=== PATIENT | female | born 1975 | race Caucasian/White ===

== ENCOUNTER → 2016-09-27 | Outpatient (CLI) | payer BC ==
--- NOTE | 2016-09-28 05:45 | PN ---
A 41-year-old female patient coming to see me in followup regarding her obstructive sleep apnea in sleep center. I saw this patient in consultation back in 2016 and I had a very high suspicion that the patient has obstructive sleep apnea based on her loud snoring, witness apneas, poor sleep quality and chronic hypersomnia and sleepiness. Her Mohall score was at 17. Her symptoms were very suggestive and my suspicion was high. I set up this patient to have sleep study, however, she failed to show up. Her condition has gotten worse. She has gained around 11 pounds. She is falling asleep at work and she has not been able to function and she is about to get fired as the patient works everyday and yet she has not been able to function. For that reason, she came back to the office for re-evaluation. Her current pulse ox on room air is 92% and she with activity she would desaturate below 90%. She has the same symptoms which is very suggestive of obstructive sleep apnea. She also psoriasis with psoriatic arthritis and history of depression. BP is 144/110, pulse 83, respirations 22, temperature 98.7. Saturation 92% on room air. Weight is 303. Height 5 feet 0 inch. BMI is 59.1. Mohall score is 19. GENERAL APPEARANCE: Appears obese, calm, comfortable. HEENT: Short neck, crowding posterior pharynx. There is no goiter or neck mass. Micrognathia along with an overbite. LUNGS: Clear to auscultation. HEART: Sounds regular rate and rhythm. Normal S1, S2. ABDOMEN: Soft, nontender. No organomegaly. EXTREMITIES: No edema, cyanosis or clubbing. SKIN: Extensive plaque psoriasis. IMPRESSION: 1. Obstructive sleep apnea suspected. Clinical suspicion is extremely high. The patient will need to be further investigated. 2. Hypersomnia. Mohall score of 19. 3. Morbid obesity. Body mass index of 59. 4. Psoriasis. 5. Depression. PLAN: 1. Immediate screening polysomnogram. 2. Avoid driving for now until the patient's obstructive sleep apnea is well treated. 3. Encourage weight loss. 4. Implement good sleep hygiene measures. 5. Will follow. [facility]
== END | disposition home or self-care (01) ==
LOC: SLEEP 15:59
PROVIDERS: ATTEND Internal Medicine Critical Care Medicine
DX: G47.10 Hypersomnia, unspecified (principal); F32.9 Major depressive disorder, single episode, unspecified; E66.01 Morbid (severe) obesity due to excess calories; L40.9 Psoriasis, unspecified

== ENCOUNTER 2016-10-08 17:08 | Inpatient (IN) | payer BC ==
[2016-10-08] MEDS ORDERED: ONDANSETRON 4 MG/2 ML VIAL IVP STA (17:24)
[2016-10-08] MEDS ORDERED: ACETAMINOPHEN TAB 500 MG TAB PO STA (17:24)
[2016-10-08] MEDS ORDERED: SODIUM CHLORIDE 0.9% 500 ML IV STA (17:24)
--- NOTE | 2016-10-08 17:48 | ED ---
General Adult HPI - General Chief complaint: Extremity Problem,Nontraumatic Stated complaint: left leg pain Time Seen by Provider: 10/08/16 17:16 Source: patient Mode of arrival: wheelchair Limitations: no limitations - History of Present Illness Initial comments: 41-year-old female patient with past medical history significant for psoriasis and bilateral lower extremity lymphedema, presents to emergency department today for complaints of left leg pain, and lower extremity erythema. Patient states that she woke this morning and had pain from her groin radiating down her leg. She describes the pain as aching and throbbing. She is having difficulty ambulating due to the pain. She states upon examination of her leg she did see some lower leg, circumferential erythema. Patient states that she has had chills, nausea, and vomiting as well today. Patient has not checked her temperature. She denies any chest pain, shortness of breath, dizziness, or weakness. She denies any hematemesis, abdominal pain, constipation, diarrhea, dysuria, urinary urgency, or urinary frequency. - Related Data Home Medications Medication Instructions Recorded Confirmed Citalopram Hydrobromide [CeleXA] 40 mg PO DAILY 09/14/14 10/08/16 Furosemide [Lasix] 20 mg PO DAILY 09/14/14 10/08/16 Levothyroxine Sodium [Synthroid] 150 mcg PO DAILY 09/14/14 10/08/16 Losartan Potassium [Cozaar] 50 mg PO DAILY 09/14/14 10/08/16 Vitamin D 5,000 Units 20,000 units PO DAILY 10/08/16 10/08/16 Allergies Allergy/AdvReac Type Severity Reaction Status Date / Time Latex, Natural Rubber Allergy Itching Verified 10/08/16 17:43 vancomycin Allergy Itching Verified 10/08/16 17:43 Review of Systems ROS Statement: Those systems with pertinent positive or pertinent negative responses have been documented in the HPI. ROS Other: All systems not noted in ROS Statement are negative. Past Medical History Past Medical History: Thyroid Disorder Additional Past Medical History / Comment(s): lymphedema History of Any Multi-Drug Resistant Organisms: None Reported Past Surgical History: Ablation, Ear Surgery Past Psychological History: Depression Smoking Status: Never smoker Past Alcohol Use History: None Reported Past Drug Use History: None Reported General Exam Limitations: no limitations General appearance: alert, in no apparent distress Eye exam: Present: normal appearance, PERRL, EOMI. Absent: scleral icterus, conjunctival injection, periorbital swelling ENT exam: Present: normal exam, mucous membranes moist Neck exam: Present: normal inspection. Absent: tenderness, meningismus, lymphadenopathy Respiratory exam: Present: normal lung sounds bilaterally. Absent: respiratory distress, wheezes, rales, rhonchi, stridor Cardiovascular Exam: Present: regular rate, normal rhythm, tachycardia ( ), normal heart sounds. Absent: systolic murmur, diastolic murmur, rubs, gallop, clicks GI/Abdominal exam: Present: soft, normal bowel sounds. Absent: distended, tenderness, guarding, rebound, rigid Extremities exam: Present: full ROM, tenderness (Left lower extremity tenderness ), normal capillary refill, pedal edema (Bilateral, nonpitting), other ( Circumferential erythema noted from mid calf down to the ankle, bilateral lower extremities exhibit swelling, nonpitting). Absent: normal inspection, joint swelling, calf tenderness Back exam: Present: normal inspection Neurological exam: Present: alert, oriented X3, CN II-XII intact Psychiatric exam: Present: normal affect, normal mood Skin exam: Present: warm, dry, intact, other (Patchy areas of psoriasis noted over entire body). Absent: rash Course Vital Signs 10/08/16 10/08/16 10/08/16 17:11 17:46 18:09 Temperature 97.8 F 102.8 F H Pulse Rate 117 H 100 Respiratory 18 24 Rate Blood Pressure 129/56 115/62 O2 Sat by Pulse 93 L 87 L Oximetry Medical Decision Making - Medical Decision Making 41-year-old female patient presents to emergency department today for evaluation of left leg pain and erythema to the left lower extremity. Patient was found to be febrile, white blood cell count of 25.4, and a lactic acid 3.0. Blood cultures were obtained and patient started on Unasyn. Vital signs reviewed patient was not hypotensive during stay in emergency department. She was hypoxic at 87% on room air, oxygen applied, chest x-ray ordered. CXR read revealed possible mild CHF, BNP added. Spoke to Rajesh Galvan NP for hospitalist group, patient will be admitted. - Lab Data Result diagrams: 10/08/16 18:00 10/08/16 18:00 Lab Results 10/08/16 10/08/16 10/08/16 Range/Units 18:00 18:00 18:00 WBC 25.4 H* (3.8-10.6) k/uL RBC 5.40 (3.80-5.40) m/uL Hgb 14.1 (11.4-16.0) gm/dL Hct 43.0 (34.0-46.0) % MCV 79.7 L (80.0-100.0) fL MCH 26.1 (25.0-35.0) pg MCHC 32.8 (31.0-37.0) g/dL RDW 14.6 (11.5-15.5) % Plt Count 286 (150-450) k/uL Neutrophils % 94 % Lymphocytes % 2 % Monocytes % 3 % Eosinophils % 0 % Basophils % 0 % Neutrophils # 24.0 H (1.3-7.7) k/uL Lymphocytes # 0.6 L (1.0-4.8) k/uL Monocytes # 0.7 (0-1.0) k/uL Eosinophils # 0.0 (0-0.7) k/uL Basophils # 0.0 (0-0.2) k/uL Hypochromasia Slight Sodium 134 L (137-145) mmol/L Potassium 3.6 (3.5-5.1) mmol/L Chloride 96 L (98-107) mmol/L Carbon Dioxide 26 (22-30) mmol/L Anion Gap 12 mmol/L BUN 11 (7-17) mg/dL Creatinine 0.60 (0.52-1.04) mg/dL Est GFR (MDRD) Af Amer >60 (>60 ml/min/1.73 sqM) Est GFR (MDRD) Non-Af >60 (>60 ml/min/1.73 sqM) Glucose 118 H (74-99) mg/dL Plasma Lactic Acid Mat 3.0 H* (0.7-2.0) mmol/L Calcium 8.8 (8.4-10.2) mg/dL Total Bilirubin 1.1 (0.2-1.3) mg/dL AST 20 (14-36) U/L ALT 33 (9-52) U/L Alkaline Phosphatase 73 (38-126) U/L Total Protein 5.1 L (6.3-8.2) g/dL Albumin 3.4 L (3.5-5.0) g/dL - Radiology Data Radiology results: report reviewed, image reviewed Left lower extremity venous Doppler revealed no DVT. Two-view x-ray of the chest shows no focal airspace opacity, pleural effusion, or pneumothorax. There is mild cephalization of the coronary vessels which could be due to mild pulmonary edema. The cardiac silhouette is borderline enlarged. The osseous structures are intact. Impression by Dr. Benites reveals mild CHF. Disposition Clinical Impression: Cellulitis of left lower extremity, Sepsis Disposition: ADMITTED IP TO THIS HOSP Condition: Fair Referrals: Diaz Sierra DO [Primary Care Provider] - 1-2 days Decision to Admit Reason: Admit from EC Decision Date: 10/08/16 Decision Time: 19:05
--- NOTE | 2016-10-08 18:07 | US ---
EXAMINATION TYPE: US venous doppler duplex LE LT DATE OF EXAM: 10/08/2016 5:57 PM COMPARISON: NONE CLINICAL HISTORY: Pain. Left leg pain SIDE PERFORMED: Left TECHNIQUE: The lower extremity deep venous system is examined utilizing real time linear array sonog vaibhav with graded compression, doppler sonography and color-flow sonography. VESSELS IMAGED: External Iliac Vein (EIV) Common Femoral Vein Greater Saphenous Vein * Femoral Vein Popliteal Vein Small Saphenous Vein * Proximal Calf Veins (* superficial vessels) *Technical limitations due to patient's body habitus 5'0" and 300+ pounds. Patient extremely uncomfor table during entire exam Left Leg: No evidence of DVT as visualized IMPRESSION: Grayscale, color doppler, spectral doppler imaging performed of the deep veins of the lo wer extremities. There is normal flow, compressibility, vascular waveforms bilaterally.
[2016-10-08 18:31] LABS: ALT 33 U/L (9-52); AST 20 U/L (14-36); Alkaline Phosphatase 73 U/L (38-126); Anion Gap 12 mmol/L; Blood Urea Nitrogen 11 mg/dL (7-17); Calcium 8.8 mg/dL (8.4-10.2); Carbon Dioxide 26 mmol/L (22-30); Chloride 96 mmol/L (98-107); Glucose 118 mg/dL (74-99); Non-African American GFR(MDRD) >60 (>60 ml/min/1.73 sqM); Potassium 3.6 mmol/L (3.5-5.1); Sodium 134 mmol/L (137-145); Total Bilirubin 1.1 mg/dL (0.2-1.3); Total Protein 5.1 g/dL (6.3-8.2)
[2016-10-08 18:46] LABS: Basophils % (A) 0 %; CH 25.2; CHCM 31.7; Eosinophils % (A) 0 %; HDW 2.85; HGB 14.1 gm/dL (11.4-16.0); Hypochromasia Slight; Luc # (Auto) 0.13; Luc % (Auto) 1; Lymphocytes # (A) 0.6 k/uL (1.0-4.8); Lymphocytes % (A) 2 %; MCH 26.1 pg (25.0-35.0); MCHC 32.8 g/dL (31.0-37.0); MCV 79.7 fL (80.0-100.0); Mean Platelet Volume 6.7; Monocytes # (A) 0.7 k/uL (0-1.0); Monocytes % (A) 3 %; Neutrophils % (A) 94 %; RDW 14.6 % (11.5-15.5); WBC (Perox) 24.93
[2016-10-08 18:48] LABS: WBC 25.4 k/uL (3.8-10.6)
[2016-10-08] MEDS ORDERED: IBUPROFEN 800 MG TAB PO STA (19:01)
--- NOTE | 2016-10-08 19:01 | XR ---
EXAMINATION TYPE: XR chest 2V TECHNIQUE: 2 views the chest were obtained. DATE OF EXAM: 10/08/2016 COMPARISON: July 19, 2010 HISTORY: Shortness of breath. Lymphedema. TECHNIQUE: Frontal and lateral views of the chest are obtained. FINDINGS: There is no focal air space opacity, pleural effusion, or pneumothorax seen. There is mild cephalization of the coronary vessels which could be due to mild pulmonary edema. The cardiac silhou ette is borderline enlarged. The osseous structures are intact. IMPRESSION: Mild CHF is noted.
[2016-10-08] MEDS ORDERED: AMPICILLIN-SULBACTAM 3 GM in SODIUM CHLORIDE 0.9% 100 ML IVPB STA (19:03)
[2016-10-08] MEDS: SODIUM CHLORIDE 0.9% 500 ML IV SCH ×3 (19:22→20:11)
[2016-10-09] MEDS: AMPICILLIN-SULBACTAM 3 GM in SODIUM CHLORIDE 0.9% 100 ML IVPB SCH ×5 (00:06→23:58)
[2016-10-09 02:34] LABS: Glucose,Whole Blood 137 mg/dL (75-99)
[2016-10-09] MEDS ORDERED: RX INFO: IV CONTRAST WAS GIVEN 1 EACH MISC MISCELLANE PRN (13:55)
[2016-10-09] MEDS ORDERED: FUROSEMIDE 10 MG/ML 4 ML VIAL IV STA (13:56)
--- NOTE | 2016-10-09 14:12 | P.HPIM ---
History of Present Illness H&P Date: 10/09/16 Chief Complaint: Left lower extremity cellulitis 41-year-old female with history of obstructive sleep apnea, obesity, essential hypertension and psoriasis comes into the hospital with the left lower extremity worsening tenderness over the last few days. Patient states that she has had significant increase in swelling and this is secondary to lymphedema that is chronic in nature Patient was seen in the emergency room was noted to have a swollen left lower extremity ultrasound of the lower extremity did not reveal any deep venous thrombosis Patient was admitted to the hospital was started on IV Unasyn A chest x-ray initially on admission did show mild CHF. Patient was noted to have lactic acidosis and a white count around 25,000 Patient denies having any fevers headaches blurry vision chest pain however does state to have some difficulty breathing Patient is currently on 3 L of supplemental oxygen Patient denies having any abdominal pain urinary urgency or frequency or diarrhea Patient denies having any history of MRSA infections in the past Review of Systems All systems: negative (Noted in HPI) Past Medical History Past Medical History: Thyroid Disorder Additional Past Medical History / Comment(s): lymphedema History of Any Multi-Drug Resistant Organisms: None Reported Past Surgical History: Ablation, Ear Surgery Past Anesthesia/Blood Transfusion Reactions: Postoperative Nausea & Vomiting ( PONV) Past Psychological History: Depression Smoking Status: Never smoker Past Alcohol Use History: None Reported Past Drug Use History: None Reported - Past Family History Mother Family Medical History: Diabetes Mellitus, Sleep Apnea/CPAP/BIPAP, Thyroid Disorder Additional Family Medical History / Comment(s): "heart issues", smoker Medications and Allergies Home Medications Medication Instructions Recorded Confirmed Type Citalopram Hydrobromide [CeleXA] 40 mg PO DAILY 09/14/14 10/08/16 History Furosemide [Lasix] 20 mg PO DAILY 09/14/14 10/08/16 History Levothyroxine Sodium [Synthroid] 150 mcg PO DAILY 09/14/14 10/08/16 History Losartan Potassium [Cozaar] 50 mg PO DAILY 09/14/14 10/08/16 History Vitamin D 5,000 Units 20,000 units PO DAILY 10/08/16 10/08/16 History Allergies Allergy/AdvReac Type Severity Reaction Status Date / Time Latex, Natural Rubber Allergy Itching Verified 10/08/16 17:43 vancomycin Allergy Itching Verified 10/08/16 17:43 Physical Exam Vitals: Vital Signs Temp Pulse Pulse Resp BP BP Pulse Ox 10/09/16 08:00 97.5 F L 85 18 113/67 91 L 10/09/16 04:00 96.6 F L 96 16 95/59 99 10/09/16 00:00 96.8 F L 95 16 92/52 95 10/08/16 22:23 97.9 F 83 16 87/47 91 L 10/08/16 21:01 98.9 F 96 18 106/55 94 L 10/08/16 20:49 97 20 105/57 94 L 10/08/16 20:39 94 16 104/57 10/08/16 20:29 98 16 104/56 96 10/08/16 20:07 90 18 101/58 96 10/08/16 19:52 94 18 98/54 97 10/08/16 19:41 101.1 F H 89 18 87/53 94 L 10/08/16 19:17 94 22 85/42 95 10/08/16 18:09 100 24 115/62 87 L 10/08/16 17:46 102.8 F H 10/08/16 17:11 97.8 F 117 H 18 129/56 93 L Intake and Output 10/08/16 10/09/16 10/09/16 22:59 06:59 14:59 Intake Total 100 Balance 100 Intake: IV 100 Ampicillin-Sulbactam 3 gm 100 In Sodium Chloride 0.9% 100 ml @ 100 mls/hr IVPB ONCE STA Rx#:[id number] Other: Voiding Method Toilet # Voids 1 1 Weight 140.614 kg 137.7 kg Physical exam Gen. appearance oriented 3 in no distress Neck is supple no JVD Lungs good air entry clear to auscultation no rhonchi or wheezing Heart S1-S2 heard regular rate and rhythm no murmurs appreciated Abdomen is soft nontender no organomegaly bowel sounds are intact Neurologically cranial nerves II-12 grossly intact no focal motor or sensory deficits noted left lower extremity diffusely tender to palpation with associated erythema from the ankle up to the pretibial region circumferential in nature Diffuse areas of psoriasis Results CBC & Chem 7: 10/08/16 18:00 10/08/16 18:00 Labs: Abnormal Lab Results - Last 24 Hours (Table) 10/08/16 10/08/1610/08/17 Range/Units 18:00 18:00 18:00 WBC 25.4 H* (3.8-10.6) k/uL MCV 79.7 L (80.0-100.0) fL Neutrophils # 24.0 H (1.3-7.7) k/uL Lymphocytes # 0.6 L (1.0-4.8) k/uL Sodium 134 L (137-145) mmol/L Chloride 96 L (98-107) mmol/L Glucose 118 H (74-99) mg/dL POC Glucose (mg/dL) (75-99) mg/dL Plasma Lactic Acid Mat 3.0 H* (0.7-2.0) mmol/L Total Protein 5.1 L (6.3-8.2) g/dL Albumin 3.4 L (3.5-5.0) g/dL 10/09/16 Range/Units 02:22 WBC (3.8-10.6) k/uL MCV (80.0-100.0) fL Neutrophils # (1.3-7.7) k/uL Lymphocytes # (1.0-4.8) k/uL Sodium (137-145) mmol/L Chloride (98-107) mmol/L Glucose (74-99) mg/dL POC Glucose (mg/dL) 137 H (75-99) mg/dL Plasma Lactic Acid Mat (0.7-2.0) mmol/L Total Protein (6.3-8.2) g/dL Albumin (3.5-5.0) g/dL Thrombosis Risk Factor Assmnt - Choose All That Apply Each Factor Represents 1 point: Age 41-60 years, Obesity (BMI >25), Swollen legs (current) Thrombosis Risk Factor Assessment Total Risk Factor Score: 3 Thrombosis Risk Factor Assessment Level: Moderate Risk Assessment and Plan Plan: #1 sepsis secondary to left lower x-ray cellulitis #2 acute hypoxic respiratory failure suspected underlying heart failure versus increased right ventricular pressure due to a pulmonary embolus in #3 essential hypertension #4 psoriasis #5 dyslipidemia #6 obesity Plan We'll obtain a CT angiogram of the chest to rule out a pulmonary embolism Echocardiogram to delineate right ventricular systolic pressure. Patient was seen by a sleep specialist a high suspicion for obstructive sleep apnea was noted I suspect the BNP is slightly elevated and mild findings of CHF on the x-ray with patient's difficulty breathing and need for 3 L of oxygen is likely due to right-sided heart failure DVT prophylaxis to continue Continue Unasyn and patient does not improve may need to consider a addition of MRSA coverage as well as that time
--- NOTE | 2016-10-09 16:30 | CT ---
EXAMINATION TYPE: CT angio chest DATE OF EXAM: 10/09/2016 COMPARISON: NONE HISTORY: 41-year-old female SOB and cellulitis to bilateral legs. TECHNIQUE: Contiguous axial scanning of the chest performed with IV Contrast, patient injected with 1 00 mL of Omnipaque 350. Coronal/sagittal MIP reconstructions performed. CT DLP: 1151.5 mGycm Automated exposure control for dose reduction was used. FINDINGS: The heart is mildly enlarged without pericardial effusion. The aorta is normal caliber with conventional arch vessel branching anatomy. There is suboptimal opacification of the pulmonary arterial system and further limitation due to resp iratory motion artifact causing heterogeneity of the pulmonary vasculature. A few segmental branches are suspicious that she has in the left lower lobe, axial image 49, 50 and 64. There is no flattening of the interventricular septum or reflux of contrast into the hepatic veins. No large central pulmon swapnil embolus. Asymmetrically larger left sided axillary lymph nodes. The largest is borderline enlarged at 1.5 cm. Mild diffuse bronchial wall thickening and strandy atelectasis in the superior segment left lower lob e as well as at the left base. No consolidation or pleural effusion. Small hiatal hernia. Mild diffuse thickening of the left adrenal gland without discrete nodularity. The spleen appears enlarged but the caudal extent is not included for accurate determination. Bones: Endplate spondylosis mid to lower thoracic spine. No osseous destructive process. IMPRESSION: 1. SUBOPTIMAL ASSESSMENT FOR PULMONARY EMBOLUS DUE TO COMBINATION OF POOR OPACIFICATION AND BREATHING MOTION ARTIFACT. NO LARGE CENTRAL PULMONARY EMBOLUS. SOME AREAS SUCH SEGMENTAL LEFT LOWER LOBE AR TERIAL BRANCHES ARE EQUIVOCAL FOR MOTION ARTIFACT VERSUS EMBOLI. IF PERSISTENT CLINICAL CONCERN, CONS IDER REPEAT EXAM. 2. BORDERLINE SIZED LEFT AXILLARY LYMPH NODES MEASURING UP TO 1.5 CM MAY BE REACTIVE/POST INFLAMMATOR Y. CORRELATE FOR ANY UPSTREAM INFECTIOUS/INFLAMMATORY PROCESS AND WITH PATIENT'S RECENT SCREENING AMOL MOGRAPHY. 3. MILD DIFFUSE BRONCHIAL WALL THICKENING SUGGESTS BRONCHITIS OR UNCONTROLLED ASTHMA. 4. SMALL HIATAL HERNIA. SUSPECT SPLENOMEGALY.
[2016-10-09] MEDS: ENOXAPARIN 60 MG/0.6 ML SYRINGE SQ SCH (18:01)
[2016-10-09] MEDS: ACETAMINOPHEN TAB 325 MG TAB PO PRN (19:01)
[2016-10-09] MEDS: FUROSEMIDE 10 MG/ML 4 ML VIAL IV SCH (20:59)
[2016-10-09] MEDS: IBUPROFEN 600 MG TAB PO PRN (23:58)
[2016-10-10] MEDS: ACETAMINOPHEN TAB 325 MG TAB PO PRN ×3 (04:07→21:49)
[2016-10-10] MEDS: AMPICILLIN-SULBACTAM 3 GM in SODIUM CHLORIDE 0.9% 100 ML IVPB SCH ×3 (06:28→17:14)
[2016-10-10] MEDS: LEVOTHYROXINE 75 MCG TAB PO SCH (06:28)
[2016-10-10 08:18] LABS: Basophils % (A) 0 %; CH 24.9; CHCM 30.2; Eosinophils # (A) 0.1 k/uL (0-0.7); Eosinophils % (A) 1 %; HDW 2.98; HGB 12.5 gm/dL (11.4-16.0); Hypochromasia Marked; Luc # (Auto) 0.27; Luc % (Auto) 2; Lymphocytes # (A) 1.2 k/uL (1.0-4.8); Lymphocytes % (A) 9 %; MCH 25.3 pg (25.0-35.0); MCHC 30.5 g/dL (31.0-37.0); MCV 82.8 fL (80.0-100.0); Mean Platelet Volume 6.9; Monocytes # (A) 0.6 k/uL (0-1.0); Monocytes % (A) 4 %; Neutrophils # (A) 11.9 k/uL (1.3-7.7); Neutrophils % (A) 85 %; RBC 4.96 m/uL (3.80-5.40); RDW 14.9 % (11.5-15.5); WBC (Perox) 14.02
[2016-10-10 08:28] LABS: Anion Gap 8 mmol/L; Blood Urea Nitrogen 11 mg/dL (7-17); Calcium 8.5 mg/dL (8.4-10.2); Carbon Dioxide 31 mmol/L (22-30); Chloride 99 mmol/L (98-107); Glucose 102 mg/dL (74-99); Non-African American GFR(MDRD) >60 (>60 ml/min/1.73 sqM); Potassium 3.9 mmol/L (3.5-5.1); Sodium 138 mmol/L (137-145)
[2016-10-10] MEDS: IBUPROFEN 600 MG TAB PO PRN ×2 (08:54→17:13)
[2016-10-10] MEDS: CITALOPRAM HYDROBROMIDE 20 MG TAB PO SCH (08:54)
[2016-10-10] MEDS: FUROSEMIDE 10 MG/ML 4 ML VIAL IV SCH ×2 (08:54→21:38)
[2016-10-10] MEDS: ENOXAPARIN 60 MG/0.6 ML SYRINGE SQ SCH (08:54)
--- NOTE | 2016-10-10 10:33 | ECHOF ---
Referral Reason:RVSP MEASUREMENTS -------- HEIGHT: 152.4 cm WEIGHT: 135.2 kg BP: 130/65 RVIDd: 4.2 cm (< 3.3) IVSd: 1.4 cm (0.6 - 1.1) LVIDd: 4.4 cm (3.9 - 5.3) LVPWd: 1.5 cm (0.6 - 1.1) IVSs: 1.7 cm LVIDs: 2.4 cm LVPWs: 1.6 cm LA Diam: 4.1 cm (2.7 - 3.8) Ao Diam: 3.4 cm (2.0 - 3.7) AV Cusp: 1.8 cm (1.5 - 2.6) LA Diam: 4.4 cm (2.7 - 3.8) MV EXCURSION: 21.475 mm (> 18.000) MV EF SLOPE: 58 mm/s (70 - 150) EPSS: 0.5 cm MV E Nicholas: 1.17 m/s MV DecT: 178 ms MV A Nicholas: 0.96 m/s MV E/A Ratio: 1.22 RAP: 5.00 mmHg RVSP: 16.53 mmHg FINDINGS -------- Sinus rhythm. Morbid Obesity This was a techncally difficult study with suboptimal views, , Definity utilized for enhancement of images. There is mild concentric left ventricular hypertrophy. Overall left ventricular systolic function is low-normal with, an EF between 50 - 55 %. The right ventricle is severely enlarged. The left atrial size is normal. The right atrial size is normal. 1.5MG OF DEFINITY UTLIZED: 2 OR MORE WALL SEGMENTS NOT VISUALIZED. The aortic valve is trileaflet, and appears structurally normal. No aortic stenosis or regurgitation. Mild mitral regurgitation is present. Mild tricuspid regurgitation present. The right ventricular systolic pressure, as measured by Doppler, is 16.53mmHg. The pulmonic valve was not well visualized. The aortic root size is normal. There is no pericardial effusion. CONCLUSIONS -------- 1. Morbid Obesity 2. The pulmonic valve was not well visualized. 3. This was a techncally difficult study with suboptimal views, , Definity utilized for enhancement of images. 4. There is mild concentric left ventricular hypertrophy. 5. Overall left ventricular systolic function is low-normal with, an EF between 50 - 55 %. 6. The right ventricle is severely enlarged. 7. 1.5MG OF DEFINITY UTLIZED: 2 OR MORE WALL SEGMENTS NOT VISUALIZED. 8. Mild mitral regurgitation is present. 9. Mild tricuspid regurgitation present. 10. The right ventricular systolic pressure, as measured by Doppler, is 16.53mmHg. ATM MECHANIC: Agustina Bernstein RDCS
[2016-10-11] MEDS: ceFAZolin 2 GM in SODIUM CHLORIDE 0.9% 100 ML IVPB SCH ×3 (00:37→16:36)
[2016-10-11] MEDS: IBUPROFEN 600 MG TAB PO PRN (01:27)
[2016-10-11] MEDS: CLINDAMYCIN 900 MG in DEXTROSE 5% IN WATER 50 ML IVPB SCH ×8 (01:27→22:48)
[2016-10-11] MEDS: ACETAMINOPHEN TAB 325 MG TAB PO PRN (06:52)
[2016-10-11] MEDS: LEVOTHYROXINE 75 MCG TAB PO SCH (06:53)
[2016-10-11] MEDS: FUROSEMIDE 10 MG/ML 4 ML VIAL IV SCH ×2 (08:17→20:48)
[2016-10-11] MEDS: ENOXAPARIN 60 MG/0.6 ML SYRINGE SQ SCH (08:18)
[2016-10-11] MEDS: CITALOPRAM HYDROBROMIDE 20 MG TAB PO SCH (08:18)
[2016-10-11] MEDS: HYDROcodone/APAP 7.5-325MG 1 EACH TAB PO PRN ×2 (11:47→17:56)
--- NOTE | 2016-10-11 12:46 | CONS ---
DATE OF CONSULTATION: 10/10/2016 REASON FOR CONSULTATION: Left lower extremity cellulitis. HISTORY OF PRESENT ILLNESS: The patient is a 41-year old female with past medical history significant for morbid obesity, psoriasis who was treated through the [facility] on 10/08/16 with chief complaint of increasing swelling and redness of the left lower extremity. The patient did have chronic edema of the leg. However, she did noticed more swelling and redness that started today, and progressed very quickly over the next few hours. The patient started having fever and chills. The patient complaining of throbbing pain in the leg, 5 to 6 out of 10 and no radiation and no skin breakdown and no drainage. The patient presented to the hospital and has been diagnosed with cellulitis for which the patient was started on Unasyn. The patient did have a fever of 102.8 degrees with elevated white count 24.8. I was asked to see the patient for further recommendations regarding antibiotic therapy. REVIEW OF SYSTEMS: Constitutional: Positive for weakness along with fever. Eyes: No complaint. ENT: No complaint. Respiratory: Some shortness of breath. Cardiovascular: No complaint. Genitourinary: No complaint. Gastrointestinal: No complaint. Musculoskeletal: No complaint. Integumentary: As per HPI. Psychological: No complaint. Endocrine: No complaint. Neurological: No complaint. The positive points have been mentioned in the HPI. Past medical history significant for morbid obesity, essential hypertension, obstructive sleep apnea, psoriasis. Past surgical history: Ear surgery and ablation. SOCIAL HISTORY: No history of smoking, drinking or drug use. FAMILY HISTORY: Mother with history of diabetes, sleep apnea and hypothyroidism. ALLERGIES: VANCOMYCIN. Medications currently include the patient is on: 1. Unasyn. 2. Tylenol. 3. Celexa. 4. Lovenox. 5. Lasix. 6. Motrin. 7. Synthroid. On examination, blood pressure is 138/61 with a pulse of 90. Temperature 98.1. 95% on room air. General description is a middle aged female lying in bed in no distress. No tachypnea or accessory muscles of respiration use. HEENT: Examination shows no pallor or scleral icterus. Oral mucosa membranes dry. NECK: Trachea is central. No thyromegaly. LUNGS: Unlabored breathing. Clear to auscultation anteriorly. No wheeze. No crackles. HEART: S1, S2 regular rate and rhythm. No abnormal sounds. ABDOMEN: Soft, no tenderness. No guarding or rigidity. EXTREMITIES: Left leg with more swelling, redness which is warm to touch and no evidence of athletes foot. NEUROLOGICALLY: The patient is alert and oriented times three. Mood and affect normal. LABS: Hemoglobin 12.5, white count 14 with admission white count 25.4 with a BUN 11, creatinine 0.50. Blood cultures currently pending. DIAGNOSTIC IMPRESSION AND PLAN: Patient admitted to the hospital with sepsis in a patient who did have a fever of 102 degrees. The patient did have elevated white count meeting criteria for SIRS, source is left lower extremity cellulitis with extensive swelling, redness. The patient does have underlying psoriasis, likely a streptococcal disease. PLAN: 1. Discontinue the Unasyn. 2. Start the patient on Cefazolin 2 gm q8 and Clindamycin 900 q8. 3. Raúl the area of the redness. 4. Will follow up on clinical condition and cultures to further adjust medication if needed. Thank you for this consultation. We will follow this patient along with you. CHRISTINA
--- NOTE | 2016-10-11 20:46 | PN ---
DATE OF SERVICE: 10/11/16 REASON FOR FOLLOW UP: Left lower extremity cellulitis. INTERVAL HISTORY: The patient is afebrile. She is breathing comfortably. The patient still complaining of pain and swelling in the left leg area. The redness has decreased from line placed from yesterday. No significant skin breakdown. No drainage. Denies significant chest pain, shortness of breath or cough. On examination, blood pressure 129/77, pulse 85, temperature 97.4, he is 92% on room air. General description is a middle age female up in the bed, in no distress. Respiratory system: Unlabored breathing. Clear to auscultation anteriorly. Heart: S1, S2 regular rate and rhythm. Abdomen soft, no tenderness. Left leg redness has slightly decreased in intensity and no swelling was noticed. Labs: Hemoglobin 12.5, white count 14. BUN 11, creatinine 0.50. Blood culture has been negative. DIAGNOSTIC IMPRESSION AND PLAN: Patient with acute left lower extremity cellulitis with diffuse swelling and redness, likely a streptococcal disease. At this time, continue the patient on Clindamycin, assess for another 24 hours. Iron has been advised. Daniel wrap to keep the swelling down. Evaluate the patient tomorrow. [facility]
[2016-10-11] MEDS: ONDANSETRON 4 MG/2 ML VIAL IVP PRN (21:16)
[2016-10-12] MEDS: IBUPROFEN 600 MG TAB PO PRN ×3 (00:37→21:21)
[2016-10-12] MEDS: ceFAZolin 2 GM in SODIUM CHLORIDE 0.9% 100 ML IVPB SCH ×5 (00:38→23:48)
[2016-10-12] MEDS: HYDROcodone/APAP 7.5-325MG 1 EACH TAB PO PRN ×4 (01:54→23:45)
[2016-10-12] MEDS: ONDANSETRON 4 MG/2 ML VIAL IVP PRN ×3 (05:31→18:58)
[2016-10-12] MEDS: LEVOTHYROXINE 75 MCG TAB PO SCH (06:26)
[2016-10-12] MEDS: CLINDAMYCIN 900 MG in DEXTROSE 5% IN WATER 50 ML IVPB SCH ×6 (06:32→23:09)
[2016-10-12] MEDS: ENOXAPARIN 60 MG/0.6 ML SYRINGE SQ SCH (08:17)
[2016-10-12] MEDS: CITALOPRAM HYDROBROMIDE 20 MG TAB PO SCH (08:17)
[2016-10-12] MEDS: FUROSEMIDE 10 MG/ML 4 ML VIAL IV SCH ×2 (08:17→20:22)
[2016-10-13] MEDS: ONDANSETRON 4 MG/2 ML VIAL IVP PRN ×3 (01:37→18:15)
[2016-10-13] MEDS: LEVOTHYROXINE 75 MCG TAB PO SCH (06:24)
[2016-10-13] MEDS: HYDROcodone/APAP 7.5-325MG 1 EACH TAB PO PRN ×3 (06:25→19:52)
[2016-10-13] MEDS: ENOXAPARIN 60 MG/0.6 ML SYRINGE SQ SCH (07:48)
[2016-10-13] MEDS: FUROSEMIDE 10 MG/ML 4 ML VIAL IV SCH ×2 (07:48→19:53)
[2016-10-13] MEDS: ceFAZolin 2 GM in SODIUM CHLORIDE 0.9% 100 ML IVPB SCH ×2 (07:49→16:09)
[2016-10-13] MEDS: CITALOPRAM HYDROBROMIDE 20 MG TAB PO SCH (07:49)
[2016-10-13] MEDS: CLINDAMYCIN 900 MG in DEXTROSE 5% IN WATER 50 ML IVPB SCH ×6 (07:49→23:38)
--- NOTE | 2016-10-13 10:17 | PN ---
DATE OF SERVICE: 10/12/16 REASON FOR FOLLOW UP: Left lower extremity cellulitis. INTERVAL HISTORY: The patient is afebrile. She is breathing slightly comfortably. Denies significant chest pain, shortness of breath, cough, no abdominal pain. Swelling has slightly improved the left leg area. On examination, blood pressure 125/73, pulse 78, temperature 97, she is 95% on room air. General description is a middle age female up in the bed, in no distress. Respiratory system: Unlabored breathing. Clear to auscultation anteriorly. Heart: S1, S2 regular rate and rhythm. Abdomen soft, no tenderness. Labs: No new labs obtained today. Blood cultures have been negative. DIAGNOSTIC IMPRESSION AND PLAN: Patient with acute left lower extremity cellulitis, diffuse swelling and redness likely streptococcal disease. The patient at this time will continue Cefazolin and Clindamycin. Evaluate the patient tomorrow. Continue supportive care. CHRISTINA
[2016-10-13] MEDS: IBUPROFEN 600 MG TAB PO PRN ×2 (11:14→23:38)
--- NOTE | 2016-10-13 15:03 | PN ---
DATE OF SERVICE: 10/13/2016 [place] is a pleasant 41-year-old white female who was admitted for cellulitis of the left lower extremity with severe lymphedema, bilateral lower extremities. She still complains of pain; however, she looked very comfortable and I did awake her from sleep today. She states her pain is less than yesterday. Her leg has been wrapped but wrapping keeps falling off her lymphedema leg but it does look improved today with less erythema and some decreased size. PHYSICAL EXAM: Vital signs are stable. She is afebrile. HEENT is normal cephalic and atraumatic. Neck is supple, no JVD. Heart regular rhythm. Skin warm, dry, positive psoriatic patches throughout her body. Left extremity with extreme lymphedema and cellulitis of the left lower extremity. Some areas weeping, some areas retracting with improvement. IMPRESSION: Acute left lower extremity cellulitis, diffuse on lymphedema. Patient is continuing on antibiotics, hopefully within the next 24 hours we can switch patient over the p.o. antibiotic and discharge to home. CHRISTINA
[2016-10-13 15:15] LABS: Basophils % (A) 0 %; CH 24.6; CHCM 29.2; Eosinophils # (A) 0.2 k/uL (0-0.7); Eosinophils % (A) 3 %; HCT 39.2 % (34.0-46.0); HDW 2.68; HGB 11.8 gm/dL (11.4-16.0); Hypochromasia Marked; Luc # (Auto) 0.21; Luc % (Auto) 3; Lymphocytes # (A) 1.2 k/uL (1.0-4.8); Lymphocytes % (A) 15 %; MCH 25.5 pg (25.0-35.0); MCHC 30.1 g/dL (31.0-37.0); MCV 84.7 fL (80.0-100.0); Mean Platelet Volume 6.9; Monocytes # (A) 0.5 k/uL (0-1.0); Monocytes % (A) 7 %; Neutrophils # (A) 5.5 k/uL (1.3-7.7); Neutrophils % (A) 73 %; RBC 4.63 m/uL (3.80-5.40); RDW 14.5 % (11.5-15.5); WBC 7.6 k/uL (3.8-10.6); WBC (Perox) 7.26
[2016-10-13 15:25] LABS: Anion Gap 8 mmol/L; Blood Urea Nitrogen 13 mg/dL (7-17); Calcium 8.3 mg/dL (8.4-10.2); Carbon Dioxide 39 mmol/L (22-30); Chloride 90 mmol/L (98-107); Glucose 165 mg/dL (74-99); Non-African American GFR(MDRD) >60 (>60 ml/min/1.73 sqM); Potassium 3.4 mmol/L (3.5-5.1); Sodium 137 mmol/L (137-145)
[2016-10-14] MEDS: ceFAZolin 2 GM in SODIUM CHLORIDE 0.9% 100 ML IVPB SCH ×3 (00:21→15:28)
[2016-10-14] MEDS: HYDROcodone/APAP 7.5-325MG 1 EACH TAB PO PRN ×2 (03:33→18:57)
[2016-10-14] MEDS: ONDANSETRON 4 MG/2 ML VIAL IVP PRN (03:33)
[2016-10-14 04:38] LABS: Appearance,Urine Clear (Clear); Bilirubin,Urine Negative (Negative); Glucose,Urine (UA) Negative (Negative); Ketones,Urine Negative (Negative); Leukocyte Esterase,Urine Moderate (Negative); Nitrite,Urine Negative (Negative); Particle Count 1011; Protein,Urine Negative (Negative); RBC,Urine 2 /hpf (0-5); Specific Gravity,Urine 1.005 (1.001-1.035); Squamous Epithelial Cell,Urine 1 /hpf (0-4); UA Billing (MACRO vs. MICRO) MICRO; Urobilinogen,Urine <2.0 mg/dL (<2.0); WBC,Urine 5 /hpf (0-5)
[2016-10-14] MEDS: LEVOTHYROXINE 75 MCG TAB PO SCH (06:51)
[2016-10-14] MEDS: ENOXAPARIN 60 MG/0.6 ML SYRINGE SQ SCH (07:47)
[2016-10-14] MEDS: FUROSEMIDE 10 MG/ML 4 ML VIAL IV SCH ×2 (07:47→20:57)
[2016-10-14] MEDS: CLINDAMYCIN 900 MG in DEXTROSE 5% IN WATER 50 ML IVPB SCH ×4 (07:47→14:38)
[2016-10-14] MEDS: CITALOPRAM HYDROBROMIDE 20 MG TAB PO SCH (07:47)
--- NOTE | 2016-10-14 08:00 | PN ---
DATE OF SERVICE: 10/13/2016 Reason for followup is left lower extremity cellulitis. INTERVAL HISTORY: The patient is afebrile and she is breathing comfortable. Overall pain and swelling to the left leg significantly improved. Patient denies significant chest pain and shortness of breath. No abdominal pain or any diarrhea. On examination, blood pressure is 119/61 with a pulse of 92, temperature 97.1. She is 90% on 3 L. General description is a middle-aged female lying in bed in no distress. RESPIRATORY SYSTEM: Unlabored breathing. Clear to auscultation anteriorly. HEART: S1 and S2 regular rate and rhythm. ABDOMEN: Soft, no tenderness. Left leg swelling and redness is improved. LABS: Hemoglobin 11.8, white count 7.6. Creatinine 0.52. DIAGNOSTIC IMPRESSION AND PLAN: Patient with acute left lower extremity cellulitis extensive. Patient seems to be slowly responding to the cefazolin and clindamycin and will be continued. The plan to finish therapy with oral Keflex 500 mg q.6 for another 10 days. pt advised to apply an Daniel wrap to keep some of the swelling down. MTDD
[2016-10-14] MEDS ORDERED: LACTULOSE 20 GM/30 ML CUP PO ONE (15:35)
--- NOTE | 2016-10-14 20:35 | PN ---
DATE OF SERVICE: 10/14/16 REASON FOR FOLLOW UP: Left leg cellulitis. INTERVAL HISTORY: The patient is afebrile. The patient still says she is not feeling better and is now complaining of constipation, no bowel movement for the last three days. Denies significant chest pain. No shortness of breath or cough. No worsening pain in the leg. On examination, blood pressure 121/84, pulse 88, temperature 96.8, she is 96% on 2 L nasal cannula. General description is a middle age female lying in the bed in no distress. Respiratory system: Unlabored breathing. Clear to auscultation anteriorly. Heart: S1, S2 regular rate and rhythm. Abdomen soft, no tenderness. Left leg swelling persists though redness has improved. LABS: White count normalized 7.6 as of yesterday. UA has been negative. DIAGNOSTIC IMPRESSION AND PLAN: 1. Patient with acute left lower extremity with diffuse swelling and redness likely streptococcal disease. The patient did show overall improvement as far as fever and white count is concerned. She will be finishing therapy with oral Keflex, 500 mg [id number] for ten days. Script has been sent to the pharmacy. For constipation, she will be given a dose of Lactulose. MTDD
[2016-10-14] MEDS: IBUPROFEN 600 MG TAB PO PRN (21:01)
[2016-10-15] MEDS: CLINDAMYCIN 900 MG in DEXTROSE 5% IN WATER 50 ML IVPB SCH ×6 (01:01→16:06)
[2016-10-15] MEDS: HYDROcodone/APAP 7.5-325MG 1 EACH TAB PO PRN ×3 (01:13→12:45)
[2016-10-15] MEDS: ceFAZolin 2 GM in SODIUM CHLORIDE 0.9% 100 ML IVPB SCH ×3 (01:14→17:24)
[2016-10-15] MEDS: LEVOTHYROXINE 75 MCG TAB PO SCH (06:33)
[2016-10-15] MEDS: CITALOPRAM HYDROBROMIDE 20 MG TAB PO SCH (09:07)
[2016-10-15] MEDS: FUROSEMIDE 10 MG/ML 4 ML VIAL IV SCH (09:08)
[2016-10-15] MEDS: ENOXAPARIN 60 MG/0.6 ML SYRINGE SQ SCH (09:08)
--- NOTE | 2016-10-15 15:08 | P.DS ---
Providers Date of admission: 10/08/16 19:12 Attending physician: Diaz Sierra Consults: 10/10/16 13:23 Consult Physician Stat Consulting Provider: Roxanne Butler Consult Reason/Comments: cellulitis Do you want consulting provider notified?: Yes Primary care physician: Diaz Sierra [facility] Course: 41-year-old female was admitted for left lower limb cellulitis extreme redness. Which apparently improved compared to yesterday. Patient still has quite a bit of redness and pain. And patient is being discharged on Keflex for cellulitis as per infectious disease. Patient has lymphedema and morbidly obese and very high risk for recurrence of cellulitis. #1 sepsis secondary to left lower x-ray cellulitis #2 essential hypertension #3 psoriasis #4 dyslipidemia #5 obesity PHYSICAL EXAMINATION: GENERAL: The patient is alert and oriented x3, not in any acute distress. Well developed, well nourished. HEENT: Pupils are round and equally reacting to light. EOMI. No scleral icterus. No conjunctival pallor. Normocephalic, atraumatic. No pharyngeal erythema. No thyromegaly. CARDIOVASCULAR: S1 and S2 present. No murmurs, rubs, or gallops. PULMONARY: Chest is clear to auscultation, no wheezing or crackles. ABDOMEN: Soft, nontender, nondistended, normoactive bowel sounds. No palpable organomegaly. MUSCULOSKELETAL: No joint swelling or deformity. EXTREMITIES: Patient has extensive edema of the left lower limb it appeared to have some chronic lymphedema with redness and localized of temperature in the left lower limb extending from ankle area up to the knee. Circumferential. There are some small skin breakdowns without any significant ulcerations. Her cellulitis apparently is better as per the patient in previous dictations from the physicians NEUROLOGICAL: Gross neurological examination did not reveal any focal deficits. SKIN: No rashes. Patient Condition at Discharge: Fair Plan - Discharge Summary New Discharge Prescriptions: New Cephalexin [Keflex] 500 mg PO Q6HR #40 cap Potassium Chloride ER [K-Dur 20] 20 meq PO DAILY #30 tab No Action Levothyroxine Sodium [Synthroid] 150 mcg PO DAILY Furosemide [Lasix] 20 mg PO DAILY Citalopram Hydrobromide [CeleXA] 40 mg PO DAILY Losartan Potassium [Cozaar] 50 mg PO DAILY Vitamin D 5,000 Units 20,000 units PO DAILY Discharge Medication List Citalopram Hydrobromide [CeleXA] 40 mg PO DAILY 09/14/14 [History] Furosemide [Lasix] 20 mg PO DAILY 09/14/14 [History] Levothyroxine Sodium [Synthroid] 150 mcg PO DAILY 09/14/14 [History] Losartan Potassium [Cozaar] 50 mg PO DAILY 09/14/14 [History] Vitamin D 5,000 Units 20,000 units PO DAILY 10/08/16 [History] Cephalexin [Keflex] 500 mg PO Q6HR #40 cap 10/14/16 [Rx] Potassium Chloride ER [K-Dur 20] 20 meq PO DAILY #30 tab 10/15/16 [Rx] Follow up Appointment(s)/Referral(s): Diaz Sierra DO [Primary Care Provider] - 3 Days Roxanne Butler MD [STAFF PHYSICIAN] - 1 Week Patient Instructions/Handouts: Heart Failure (DC), Cellulitis (DC), Weight Management (DC) Activity/Diet/Wound Care/Special Instructions: Low fat, low salt diet. Sleep study planned as outpatient. Discharge Disposition: HOME SELF-CARE
[2016-10-15 15:14] VITALS: BP 116/71; PULSE 72; RESP 20; TEMP 97.3; BMI 56.2
--- NOTE | 2016-10-16 15:51 | PN ---
DATE OF SERVICE: 10/15/2016 REASON FOR FOLLOW UP: Left lower extremity cellulitis. INTERVAL HISTORY: The patient is afebrile. She is breathing comfortably. Denied significant chest pain, shortness of breath, no cough. No vomiting. still pain in the left leg area. On examination blood pressure is 116/71, pulse 72, temperature 97.3, she is 96% on room air. GENERAL DESCRIPTION: Middle-aged female lying in bed in no distress. RESPIRATORY: Unlabored breathing. Clear to auscultation anteriorly. HEART: S1/S2 regular. ABDOMEN: Soft. No tenderness. Left leg with cellulitis, improved. DIAGNOSTIC IMPRESSION: Patient with left lower extremity cellulitis with diffuse swelling, currently improving on cefazolin and clindamycin. We are going to switch therapy to p.o. Keflex. Continue supportive care. [facility]
== END 2016-10-15 19:50 | disposition home or self-care (01) | DRG 871 ==
LOC: EC 17:08 → 6SEL 19:12 → 4MS4W 10-11 11:12
PROVIDERS: ADMIT Family Medicine; ATTEND Family Medicine
DX: A41.9 Sepsis, unspecified organism (principal); J96.01 Acute respiratory failure with hypoxia; E87.2 Acidosis; L03.116 Cellulitis of left lower limb; I50.9 Heart failure, unspecified; I11.0 Hypertensive heart disease with heart failure; E66.01 Morbid (severe) obesity due to excess calories; E78.5 Hyperlipidemia, unspecified; G47.33 Obstructive sleep apnea (adult) (pediatric); I89.0 Lymphedema, not elsewhere classified; F32.9 Major depressive disorder, single episode, unspecified; K59.00 Constipation, unspecified; E07.9 Disorder of thyroid, unspecified; R11.2 Nausea with vomiting, unspecified; R53.1 Weakness; L40.9 Psoriasis, unspecified; R26.2 Difficulty in walking, not elsewhere classified; Z88.1 Allergy status to other antibiotic agents; Z91.040 Latex allergy status; Z91.048 Other nonmedicinal substance allergy status; Z79.899 Other long term (current) drug therapy; Z83.3 Family history of diabetes mellitus; Z71.3 Dietary counseling and surveillance; Z83.49 Family history of other endocrine, nutritional and metabolic diseases; Z82.49 Family history of ischemic heart disease and other diseases of the circulatory system; Z83.6 Family history of other diseases of the respiratory system
CPT/HCPCS: 36415; 71020; 71275; 80048; 80053; 81001; 83605; 83880; 85025; 87040; 93005; 93306; 94760; 96361; 96365; 96375; 99285

== ENCOUNTER → 2017-01-17 | Outpatient (CLI) | payer BC ==
--- NOTE | 2017-01-17 18:04 | PN ---
PROGRESS NOTE [place] is 41 diagnosed having severe symptomatic obstructive sleep apnea. I am seeing her today in followup. Based on her screening polysomnogram, the patient was found to have an AHI of 107.7. She had a successful titration with a CPAP pressure of 14. She is coming in for a compliancy check. The patient reports significant improvement in her daytime symptoms and overall sleep quality with CPAP treatment. The patient is currently at a pressure of 14 cm of water. She is awake. She is sleeping. She is using her CPAP every night. Her CPAP use for more than 4 hours is 100%. She is averaging about 7.9 hours of CPAP use per night. Leak factor is 12 L/minute. The patient's AHI is down to 0.6 per hour while on treatment. She also managed to lose about 20 pounds since her CPAP titration that was done in October of 2016. As such, this has been an excellent and successful treatment. PHYSICAL EXAMINATION: BP is 120/60, pulse 84, respirations 16, weight is 282. Temperature 97.5, saturation 96% on room air. General appearance calm, comfortable. HEENT: Short neck, crowding of posterior pharynx. No goiter or neck masses. LUNGS: Clear to auscultation. Heart sounds regular rate and rhythm. Normal S1, S2. No S3. No murmurs. Abdomen is soft, nontender. No organomegaly. EXTREMITIES: No edema. No cyanosis or clubbing. IMPRESSION: 1. Severe symptomatic obstructive sleep apnea, AHI of 107.7. The patient undergoing successful CPAP therapy with pressures of 14 cm of water. 2. Chronic hypersomnia initial [place] score was 7 and currently is down to 5. 3. Morbid obesity. BMI initially was 58 and the patient has lost approximately the 21 pounds. PLAN: Treatment is successful. Continue CPAP therapy at same level of pressure. We will renew her CPAP supplies. Will see me back in followup in a year's time earlier if needed. She has no active issues. For now, treatment has been successful. MMODL / IJN: [id number] /
== END ==
LOC: SLEEP 16:14
PROVIDERS: ATTEND Internal Medicine Critical Care Medicine
DX: G47.33 Obstructive sleep apnea (adult) (pediatric) (principal); E66.01 Morbid (severe) obesity due to excess calories; Z68.43 Body mass index [BMI] 50.0-59.9, adult

== ENCOUNTER → 2017-04-24 | Outpatient (CLI) | payer BC ==
[2017-04-25 01:55] LABS: Soybean IgE <0.10 kU/L
[2017-04-25 01:56] LABS: Peanut IgE <0.10 kU/L
[2017-04-25 01:57] LABS: Dermato. farinae IgE <0.10 kU/L; Dog Dander IgE <0.10 kU/L; Egg White IgE <0.10 kU/L
[2017-04-25 12:39] LABS: Latex IgE Class CLASS 0
== END | disposition home or self-care (01) ==
LOC: LABWHC1 15:17
PROVIDERS: ATTEND Allergy & Immunology
DX: J30.9 Allergic rhinitis, unspecified (principal)
CPT/HCPCS: 36415; 86003

== ENCOUNTER 2018-01-04 16:46 | Emergency (ER) | payer BC ==
[2018-01-04 16:52] VITALS: BP 159/91; PULSE 93; RESP 20; TEMP 97.7
--- NOTE | 2018-01-04 17:32 | XR ---
EXAMINATION TYPE: XR foot complete LT DATE OF EXAM: 01/04/2018 COMPARISON: NONE HISTORY: Trauma. Pain TECHNIQUE: 3 views FINDINGS: There are plantar and Achilles calcaneal spurs. Metatarsals appear intact. I see no fractur e nor dislocation. IMPRESSION: Calcaneal spurring. No fracture seen.
--- NOTE | 2018-01-04 17:37 | ED ---
Lower Extremity Injury HPI - General Chief Complaint: Extremity Injury, Lower Stated Complaint: toe pain Time Seen by Provider: 01/04/18 16:56 Source: patient, RN notes reviewed Mode of arrival: ambulatory Limitations: no limitations - History of Present Illness Initial Comments: This is a 42-year-old female who presents to the emergency department with chief complaint of left foot injury. Patient states that yesterday she dropped a bowl onto her left foot. She states that at first she believed that she bruised it but when she woke up this morning she was having difficulty bearing weight and ambulating. She states that she has been walking on the inner part of her foot because most of the pain is in the pinky toe and lateral foot. Denies any other injuries or trauma. Denies fever, chills, chest pain, shortness of breath, abdominal pain, nausea or vomiting, numbness or tingling, headache or vision changes. - Related Data Home Medications Medication Instructions Recorded Confirmed Citalopram Hydrobromide [CeleXA] 40 mg PO HS 03/09/17 03/09/17 Furosemide [Lasix] 40 mg PO HS 03/09/17 03/09/17 Levothyroxine Sodium [Synthroid] 150 mcg PO HS 03/09/17 03/09/17 Losartan Potassium 50 mg PO HS 03/09/17 03/09/17 Meloxicam 15 mg PO HS 03/09/17 03/09/17 Previous Rx's Medication Instructions Recorded Cephalexin [Keflex] 500 mg PO QID #40 cap 03/10/17 Allergies Allergy/AdvReac Type Severity Reaction Status Date / Time Latex, Natural Rubber Allergy Itching Verified 01/04/18 16:52 vancomycin Allergy Itching Verified 01/04/18 16:52 Review of Systems ROS Statement: Those systems with pertinent positive or pertinent negative responses have been documented in the HPI. ROS Other: All systems not noted in ROS Statement are negative. Past Medical History Past Medical History: Thyroid Disorder Additional Past Medical History / Comment(s): lymphedema,cellulitis History of Any Multi-Drug Resistant Organisms: None Reported Past Surgical History: Ablation, Ear Surgery Past Anesthesia/Blood Transfusion Reactions: Postoperative Nausea & Vomiting ( PONV) Past Psychological History: Depression Smoking Status: Never smoker Past Alcohol Use History: None Reported Past Drug Use History: None Reported - Past Family History Mother Family Medical History: Diabetes Mellitus, Sleep Apnea/CPAP/BIPAP, Thyroid Disorder Additional Family Medical History / Comment(s): "heart issues", smoker General Exam - General Exam Comments Initial Comments: General: Awake and alert, well-developed; in no apparent distress. HEENT: Head atraumatic, normocephalic. Pupils are equal, round and reactive to light. Extraocular movements intact. Oropharynx moist without erythema or exudate. Neck: Supple. Normal ROM. Cardiovascular: Regular rate and rhythm. No murmurs, rubs or gallops. Chest symmetrical. Respiratory: Lungs clear to auscultation bilaterally. No wheezes, rales or rhonchi. Normal respiratory effort with no use of accessory muscles. Musculoskeletal: Normal range of motion of the left foot and ankle. There is tenderness to the lateral foot and fifth toe. Fifth toe does have diffuse ecchymosis. Sensation is intact. Pedal pulses are 2+ equal and palpable bilaterally. Patient is ambulating without assistance. Skin: [place], warm and dry with diffuse areas of psoriasis. Neurological: Alert and oriented x3. CN II-XII grossly intact. Speech is fluent and answers are appropriate. No focal neuro deficits. Psychiatric: Normal mood and affect. No overt signs of depression or anxiety noted. Limitations: no limitations Course Vital Signs 01/04/18 16:49 Temperature 97.7 F Pulse Rate 93 Respiratory 20 Rate Blood Pressure 159/91 O2 Sat by Pulse 98 Oximetry Medical Decision Making - Medical Decision Making This is a 42-year-old female who presents to the emergency department with chief complaint of left foot injury. Patient reports dropping a bowl onto her foot yesterday. She has been having difficulty bearing weight and ambulating. On physical examination, there is tenderness to the lateral left foot with ecchymosis of the pinky toe. Patient is ambulating without assistance. X-ray was obtained which revealed no acute abnormalities. Patient is suffering from a foot contusion. Recommended rest, ice and Tylenol or Motrin as needed. Patient is in no acute distress and will be discharged home at this time. She is in agreement and voices understanding. All questions answered. - Radiology Data Radiology results: report reviewed X-ray left foot impression: Calcaneal spurring. No fracture seen. Disposition Clinical Impression: Foot contusion Disposition: HOME SELF-CARE Condition: Good Instructions: Foot Contusion (ED) Additional Instructions: Please follow up with primary care provider within 1-2 days. Return to emergency department if symptoms should worsen or any concerns arise. Is patient prescribed a controlled substance at d/c from ED?: No Referrals: Diaz Sierra DO [Primary Care Provider] - 1-2 days Time of Disposition: 17:36
== END 2018-01-04 17:54 | disposition home or self-care (01) ==
LOC: EC 16:46
DX: S90.32XA Contusion of left foot, initial encounter (principal); E07.9 Disorder of thyroid, unspecified; F32.9 Major depressive disorder, single episode, unspecified; Z79.1 Long term (current) use of non-steroidal anti-inflammatories (NSAID); Z79.899 Other long term (current) drug therapy; Z88.1 Allergy status to other antibiotic agents; Z91.040 Latex allergy status; W20.8XXA Other cause of strike by thrown, projected or falling object, initial encounter; Y92.009 Unspecified place in unspecified non-institutional (private) residence as the place of occurrence of the external cause
CPT/HCPCS: 99283

== ENCOUNTER → 2018-02-20 | Outpatient (CLI) | payer BC ==
--- NOTE | 2018-02-20 12:37 | PN ---
PROGRESS NOTE I am seeing this 42-year-old female patient for an annual check regarding her obstructive sleep apnea treatment. Her last evaluation was approximately a year ago. She is known to have severe HENRY and severe psoriasis. Her AHI is at 107.7, and she was treated with a CPAP pressure of 14 cm of water. On today's evaluation, the patient has no specific complaints. She used to weigh 282 and currently she is down to 274. Her main complaint is diffuse body aches related to her psoriatic arthritis. Her psoriasis is also active and the patient has not responded to various treatments offered to her over the years. The patient is doing well on her CPAP. Her CPAP compliancy data shows that the patient has been utilizing her CPAP every night and her compliancy for more than 4 hours is 21 out of 30. Average CPAP is around 6.2 hours per night. The leak factor 12 L/minute. AHI while on treatment is down to 0.4. No hypersomnia or sleepiness during the day. She is using a AirFit F20 small size full-face mask. She is trying to lose weight. She has not other complaints otherwise for now. Her [place] score is currently a 6. REVIEW OF SYSTEMS: Twelve-point review of system was done. No respiratory difficulties overnight. The patient is utilizing her CPAP. No nasal congestion, drainage, cough, sputum production, chest pain, or shortness of breath. The patient has no heartburn. She has chronic aches and pains and chronic skin lesions related to her psoriasis. No nausea. No vomiting. No diarrhea. No abdominal pain. No heartburn. No altered mentation. PHYSICAL EXAMINATION: The BP is 165/81, pulse 82, respirations 16, temperature 97.8, saturation 95% on room air. Weight is 274 and height is 5 feet zero inches, BMI 53.5. GENERAL APPEARANCE: Calm, comfortable. No acute distress. Head is atraumatic, normocephalic. Neck is supple. Significant chronic posterior pharynx. There is no goiter or neck masses. LUNGS: Diminished breath sounds, otherwise clear. HEART: Sounds are regular rate and rhythm. Normal S1, S2. No S3, S4. No murmurs. ABDOMEN: Soft, nontender. No organomegaly. EXTREMITIES: No edema. No cyanosis or clubbing. SKIN: Psoriatic were seen throughout the body involving the face, upper and lower extremities. NEUROLOGIC: Alert and oriented x3. No focal neurological deficit. IMPRESSION: 1. Severe obstructive sleep apnea AHI of 107 currently undergoing successful CPAP therapy at a pressure of 14 cm of water. 2. Obesity with interval weight loss. Current body mass index is down to 53. Weight is 274 pounds. 3. Extensive psoriasis. 4. Psoriatic arthritis and degenerative arthritis. PLAN: 1. Continue CPAP at same level of pressure, which is 14 cm of water. 2. Encourage further weight loss. 3. Renew the AirFit F20 full face mask small size. 4. Implement good sleep hygiene measures. 5. The patient is benefitting from the treatment. We will continue to follow. MMODL / IJN: [id number] /
== END ==
LOC: SLEEP 10:57
PROVIDERS: ATTEND Internal Medicine Critical Care Medicine
DX: G47.33 Obstructive sleep apnea (adult) (pediatric) (principal); E66.9 Obesity, unspecified; L40.9 Psoriasis, unspecified; L40.50 Arthropathic psoriasis, unspecified; M19.90 Unspecified osteoarthritis, unspecified site; Z99.89 Dependence on other enabling machines and devices; Z68.43 Body mass index [BMI] 50.0-59.9, adult

== ENCOUNTER 2018-07-28 17:54 | Emergency (ER) | payer BC, OTHER ==
[2018-07-28 18:02] VITALS: BP 154/92; PULSE 94; RESP 18
--- NOTE | 2018-07-28 18:18 | ED ---
General Adult HPI - General Chief complaint: Skin/Abscess/Foreign Body Stated complaint: Food stuck in throat Time Seen by Provider: 07/28/18 18:03 Source: patient Mode of arrival: ambulatory Limitations: no limitations - History of Present Illness Initial comments: Dictation was produced using [email or web address] dictation software. please excuse any grammatical, word or spelling errors. Chief Complaint: 43-year-old female presents with sensation of fishbone in throat. History of Present Illness: Patient is a 43-year-old female. Approximately 20 minutes prior to arrival she was eating some perch. She felt as though there was a bone stuck in her throat. Patient denies any drooling, respiratory distress. Patient does not on any blood thinners. She denies any history of swallowing difficulties in the past. The ROS documented in this emergency department record has been reviewed and confirmed by me. Those systems with pertinent positive or negative responses have been documented in the HPI. All other systems are other negative and/or noncontributory. PHYSICAL EXAM: General Impression: Alert and oriented x3, not in acute distress HEENT: Normocephalic atraumatic, extra-ocular movements intact, pupils equal and reactive to light bilaterally, mucous membranes moist, no drooling Cardiovascular: Heart regular rate and rhythm, S1&S2 audible, no murmurs, rubs or gallops Chest: Lungs clear to auscultation bilaterally, no rhonchi, no wheeze, no rales Abdomen: Bowel sounds present, abdomen soft, non-tender, non-distended, no organomegaly Musculoskeletal: Pulses present and equal in all extremities, no peripheral edema Motor: no focal deficits noted Neurological: CN II-XII grossly intact, no focal motor or sensory deficits noted Skin: Intact with no visualized rashes Psych: Normal affect and mood ED course: 43 year old female presents with fishbone sensation in the throat. Vital signs upon arrival are within acceptable limits. Patient's well-appearing at this time. She feels as though the foreign body sensation is not improving at all. Concerns for respiratory compromise or esophageal occlusion. X-ray soft tissue neck is unremarkable. No visualized foreign body seen. I initially discussed this case with Dr. Boothe who feels this is outside of scope of practice concerning that he does not have to sick after the bone. Recommends ENT be called. Discussed patient case with Dr. Vernon who will evaluate patient at bedside. Fishbone was removed by ENT. Patient clear for discharge. She told to be careful of fishbone's in the future. Return parameters discussed. - Related Data Home Medications Medication Instructions Recorded Confirmed Citalopram Hydrobromide [CeleXA] 40 mg PO HS 03/09/17 07/28/18 Levothyroxine Sodium [Synthroid] 150 mcg PO HS 03/09/17 07/28/18 Furosemide [Lasix] 20 mg PO DAILY 07/28/18 07/28/18 [place]-3 Fatty Acids/Fish Oil [Fish 1 cap PO DAILY 07/28/18 07/28/18 Oil 1,000 mg Softgel] Allergies Allergy/AdvReac Type Severity Reaction Status Date / Time Latex, Natural Rubber Allergy Itching Verified 07/28/18 18:13 vancomycin Allergy Itching Verified 07/28/18 18:13 Review of Systems ROS Statement: Those systems with pertinent positive or pertinent negative responses have been documented in the HPI. ROS Other: All systems not noted in ROS Statement are negative. Past Medical History Past Medical History: Thyroid Disorder Additional Past Medical History / Comment(s): lymphedema,cellulitis History of Any Multi-Drug Resistant Organisms: None Reported Past Surgical History: Ablation, Ear Surgery Past Anesthesia/Blood Transfusion Reactions: Postoperative Nausea & Vomiting (PONV) Past Psychological History: Depression Smoking Status: Never smoker Past Alcohol Use History: None Reported Past Drug Use History: None Reported - Past Family History Mother Family Medical History: Diabetes Mellitus, Sleep Apnea/CPAP/BIPAP, Thyroid Disorder Additional Family Medical History / Comment(s): "heart issues", smoker General Exam Limitations: no limitations Course Vital Signs 07/28/18 07/28/18 17:59 19:00 Temperature 98.4 F 98.9 F Pulse Rate 94 Respiratory 18 Rate Blood Pressure 154/92 O2 Sat by Pulse 97 Oximetry Disposition Clinical Impression: Foreign body alimentary tract Disposition: HOME SELF-CARE Condition: Good Instructions (If sedation given, give patient instructions): Esophageal Foreign Body (ED) Is patient prescribed a controlled substance at d/c from ED?: No Referrals: Diaz Sierra DO [Primary Care Provider] - 1-2 days Time of Disposition: 19:54
--- NOTE | 2018-07-28 18:38 | XR ---
EXAMINATION TYPE: XR soft tissue neck DATE OF EXAM: 07/28/2018 COMPARISON: NONE HISTORY: Patient describes dysphagia with food stuck. TECHNIQUE: Frontal and lateral views of the neck soft tissues. FINDINGS: No radiopaque foreign body is seen. No prevertebral soft tissue swelling. Osseous structure s appear intact. No malalignment of the cervical spine. IMPRESSION: No radiopaque foreign body.
[2018-07-28 19:00] VITALS: TEMP 98.9
[2018-07-28] MEDS ORDERED: BENZOCAINE SPRAY 1 CAN ONE (19:32)
[2018-07-28] MEDS ORDERED: BENZOCAINE SPRAY 1 CAN TOPICAL STA (20:01)
--- NOTE | 2018-07-29 05:54 | CONS ---
CONSULTATION DATE OF SERVICE: 07/28/2018 CHIEF COMPLAINT: Foreign body in throat. HISTORY OF PRESENT ILLNESS: This is an obese 43-year-old white female who was eating at the [employer], a perch dinner. During her eating, she felt a pain in her throat and felt that she might have had a fishbone stuck in her throat. She presents for evaluation of this globus pharyngeus sensation. She points to the right side of her throat as to where she feels this foreign body sensation. PAST MEDICAL HISTORY: Is negative. SURGICAL HISTORY: Negative. ALLERGIES: Are negative. REVIEW OF SYSTEMS: Please see emergency room note. PHYSICAL EXAMINATION: VITAL SIGNS: Blood pressure is 130/86, pulse is 82. The patient is afebrile. GENERAL: Patient is an alert, oriented, obese female in no apparent distress. Well nourished, well developed. No gross abnormalities. HEAD: Normocephalic. The face is symmetric. There is no abnormal masses. There is no tenderness to the sinuses or mastoids. There are no nodules, eruptions or parasites on scalp. MOUTH AND THROAT: The patient has a fishbone in bed at the base of the tongue found on endoscopy. One cannot see this on a normal physical exam. NECK: Trachea midline. Thyroid is not enlarged. IMPRESSIONS: Foreign body embedded base of tongue, i.e. perch fishbone. PLAN OF TREATMENT: This patient is to undergo removal of this fishbone that was noted at the base of the tongue. All risks, benefits, and alternative therapies were discussed. Consent was obtained. All questions were answered. MMODL / IJN: [id number] /
--- NOTE | 2018-07-29 05:54 | OP ---
OPERATIVE REPORT DATE OF SERVICE: 07/28/2018. TYPE OF CASE: Elective. SURGEONS: Dr. Daniele Freeman D.O. ANESTHESIA: Nothing. PREOPERATIVE DIAGNOSIS: Foreign body throat. POSTOPERATIVE DIAGNOSIS: Fishbone located at the midline of the lingual tonsil. OPERATIVE PROCEDURE: Flexible nasopharyngeal laryngoscopy. BLOOD LOSS: None. OPERATIVE INDICATIONS: This patient swallowed perch and felt a foreign substance sticking in her throat. Every time she would swallow it would scratch and be irritating. Endoscopy and removal of this presumptive fishbone was recommended. OPERATIVE FINDINGS: The patient had a large fishbone embedded into the lingual tonsil just above the tip of the epiglottis. PROCEDURE: An ENF type GP nasopharyngoscope was placed into the patient's left nares following the floor of the nose into the nasopharynx and the oropharynx and the hypopharynx. A complete evaluation was performed including evaluation of the true and false vocal cords, epiglottis, vallecula, piriform sinuses, post cricoid space, etc. There was identification of a fairly large fishbone that was embedded into the base of the tongue in the midline just above the tip of the epiglottis. No other abnormality was noted. The scope was removed and the patient was planned to undergo removal of this fishbone. MMODL / IJN: [id number] /
--- NOTE | 2018-07-29 05:57 | OP ---
OPERATIVE REPORT DATE OF SERVICE: 07/28/2018. TYPE OF CASE: Elective. SURGEON: Dr. Daniele Freeman D.O. Sponge, instrument and needle count correct. ANESTHESIA: Topical. PREOPERATIVE DIAGNOSIS: Embedded foreign body, base of the tongue. POSTOPERATIVE DIAGNOSIS: Embedded foreign body base of tongue. OPERATIVE PROCEDURE: Removal of a foreign body base of tongue. OPERATIVE INDICATIONS: This patient has an embedded foreign body at the base of the tongue. OPERATIVE FINDINGS: A large fishbone was imbedded into the lingual tonsils just above the tip of the epiglottis. OPERATIVE PROCEDURE: This patient had topical Cetacaine spray sprayed into her mouth and throat and waited 5 minutes for full topical anesthesia to take place. We placed her in a supine position and a MAC blade was used in the mouth. We open the mouth, utilized a Rodrigo blade and retracted the anterior tongue and then the posterior tongue under direct visualization. An imbedded fishbone was noted at the base of the tongue. This was removed with a Yuridia forceps. The patient tolerated this well and I did give this fishbone to the patient in a specimen cup for her keeping. The patient did well. Her symptoms resolved after the fishbone was removed. MMODL / IJN: [id number] /
== END 2018-07-28 20:05 | disposition home or self-care (01) ==
LOC: EC 17:54
DX: T18.9XXA Foreign body of alimentary tract, part unspecified, initial encounter (principal); E07.9 Disorder of thyroid, unspecified; F32.9 Major depressive disorder, single episode, unspecified; Z79.890 Hormone replacement therapy; Z79.899 Other long term (current) drug therapy; Z88.1 Allergy status to other antibiotic agents; Z91.040 Latex allergy status
CPT/HCPCS: 31575; 42809; 70360; 99284

== ENCOUNTER → 2018-10-05 | Outpatient (CLI) | payer BC ==
--- NOTE | 2018-10-05 10:31 | XR ---
EXAMINATION TYPE: XR knee complete RT DATE OF EXAM: 10/05/2018 CLINICAL HISTORY: pain TECHNIQUE: Three views of the right knee are obtained. COMPARISON: None. FINDINGS: There is no acute fracture/dislocation. The tri-compartment joint spaces appear within no rmal limits. The overlying soft tissue appears unremarkable. IMPRESSION: There is no acute fracture or dislocation.ICD 10 NO FRACTURE, INITIAL EVALUATION
== END | disposition home or self-care (01) ==
LOC: RADXRMAIN 10:08
PROVIDERS: ATTEND Family Medicine
DX: M25.561 Pain in right knee (principal)

== ENCOUNTER → 2018-10-15 | Outpatient (CLI) | payer BC | END | disposition home or self-care (01) | LOC: LABWHC1 06:31 | PROVIDERS: ATTEND Family Medicine | DX: R10.9 Unspecified abdominal pain (principal) | CPT/HCPCS: 36415; 84702 ==

== ENCOUNTER → 2018-11-15 | Outpatient (CLI) | payer OTHER ==
--- NOTE | 2018-11-15 12:24 | XR ---
EXAMINATION TYPE: XR foot complete LT DATE OF EXAM: 11/15/2018 CLINICAL HISTORY: pain TECHNIQUE: Frontal, lateral and oblique images of the left foot are obtained. COMPARISON: None. FINDINGS: There is no acute fracture/dislocation evident. The joint spaces appear within normal gallegos its. The overlying soft tissue appears unremarkable. IMPRESSION: There is no acute fracture or dislocation. ICD 10 NO FRACTURE, INITIAL EVALUATION
== END | disposition home or self-care (01) ==
LOC: RADXRMAIN 11:59
PROVIDERS: ATTEND Emergency Medicine
DX: S97.102A Crushing injury of unspecified left toe(s), initial encounter (principal)

== ENCOUNTER 2018-11-17 18:18 | Emergency (ER) | payer BC, OTHER ==
[2018-11-17 18:32] VITALS: RESP 18; TEMP 97.8
--- NOTE | 2018-11-17 19:27 | ED ---
Skin/Abscess/FB HPI - General Chief complaint: Skin/Abscess/Foreign Body Stated complaint: ihs - poss reaction to tetnus Time Seen by Provider: 11/17/18 18:48 Source: patient Mode of arrival: ambulatory Limitations: no limitations - History of Present Illness Initial comments: Patient is a 43-year-old female presenting to emergency Department with compl aints of redness and pain on her upper left arm after receiving tetanus vaccine 2 days ago. Patient states she has pain when she moves her arm around. Patient has not had a tetanus vaccine in a really long time so she wanted to make sure this is not getting infected. Patient has not been doing anything at home to help alleviate her symptoms. Patient has past medical history of severe psoriasis. She denies fever, chills. Upon arrival to ER, vital signs are stable. Patient has no other complaints at this time. - Related Data Home Medications Medication Instructions Recorded Confirmed Citalopram Hydrobromide [CeleXA] 40 mg PO HS 03/09/17 07/28/18 Levothyroxine Sodium [Synthroid] 150 mcg PO HS 03/09/17 07/28/18 Furosemide [Lasix] 20 mg PO DAILY 07/28/18 07/28/18 [place]-3 Fatty Acids/Fish Oil [Fish 1 cap PO DAILY 07/28/18 07/28/18 Oil 1,000 mg Softgel] Allergies Allergy/AdvReac Type Severity Reaction Status Date / Time Latex, Natural Rubber Allergy Itching Verified 07/28/18 18:13 vancomycin Allergy Itching Verified 07/28/18 18:13 Review of Systems ROS Statement: Those systems with pertinent positive or pertinent negative responses have been documented in the HPI. ROS Other: All systems not noted in ROS Statement are negative. Past Medical History Past Medical History: Thyroid Disorder Additional Past Medical History / Comment(s): lymphedema,cellulitis, psoriasis History of Any Multi-Drug Resistant Organisms: None Reported Past Surgical History: Ablation, Ear Surgery Past Anesthesia/Blood Transfusion Reactions: Postoperative Nausea & Vomiting (PONV) Past Psychological History: Depression Smoking Status: Never smoker Past Alcohol Use History: None Reported Past Drug Use History: None Reported - Past Family History Mother Family Medical History: Diabetes Mellitus, Sleep Apnea/CPAP/BIPAP, Thyroid Disorder Additional Family Medical History / Comment(s): "heart issues", smoker General Exam - General Exam Comments Initial Comments: GENERAL: Well-appearing, well-nourished and in no acute distress. HEAD: Atraumatic, normocephalic. EYES: Pupils equal round and reactive to light, extraocular movements intact, sclera anicteric, conjunctiva are normal. ENT: TMs normal, nares patent, oropharynx clear without exudates. Moist mucous membranes. NECK: Normal range of motion, supple without lymphadenopathy or JVD. LUNGS: Breath sounds clear to auscultation bilaterally and equal. No wheezes rales or rhonchi. HEART: Regular rate and rhythm without murmurs, rubs or gallops. ABDOMEN: Soft, nontender, normoactive bowel sounds. No guarding, no rebound. No masses appreciated. : Deferred EXTREMITIES: Normal range of motion, no pitting or edema. No clubbing or cyanosis. NEUROLOGICAL: Cranial nerves II through XII grossly intact. Normal speech, normal gait. PSYCH: Normal mood, normal affect. SKIN: Patient has widespread psoriasis. Patient has a localized area of erythema, approximately 3 cm in diameter, on the lateral aspect of the left deltoid. Patient reports tenderness with palpation. Patient has pain with range of motion. There is no area of fluctuants or induration. No signs of infection. Limitations: no limitations Course Vital Signs 11/17/18 11/17/18 18:30 19:43 Temperature 97.8 F 97.8 F Pulse Rate 103 H 98 Respiratory 18 18 Rate Blood Pressure 158/91 148/90 O2 Sat by Pulse 99 100 Oximetry Medical Decision Making - Medical Decision Making Patient is a 43-year-old female presenting with redness and pain in the area of her tetanus vaccine was administered 2 days ago. She denies fever, chills. On exam patient has a small area of erythema on her left deltoid area where she received tetanus vaccine. Patient has pain with palpation of the area. There is no areas of fluctuance or signs of infection. Was discussed with patient this is most likely a local reaction. Patient will use use heat and/or ice to the area and range of motion to help with her symptoms. Patient is stable for discharge at this time. Return parameters were discussed with the patient she verbalized understanding. Case discussed with Dr. Wilde. Disposition Clinical Impression: Local reaction to tetanus vaccine, Left upper arm pain Disposition: HOME SELF-CARE Condition: Stable Instructions (If sedation given, give patient instructions): Tdap and Td Vaccines for Adults (ED) Additional Instructions: Please return to the Emergency Department if symptoms worsen or any other concerns. Use ice on the area as well as movement of the left upper arm. Follow-up with doctor, as discussed, on Monday if there is no improvement. Is patient prescribed a controlled substance at d/c from ED?: No Referrals: Diaz Sierra DO [Primary Care Provider] - 1-2 days
[2018-11-17 19:44] VITALS: BP 148/90; PULSE 98
== END 2018-11-17 19:43 | disposition home or self-care (01) ==
LOC: EC 18:18
DX: M79.622 Pain in left upper arm (principal); T50.A95A Adverse effect of other bacterial vaccines, initial encounter; L40.9 Psoriasis, unspecified; E07.9 Disorder of thyroid, unspecified; F32.9 Major depressive disorder, single episode, unspecified; Z79.890 Hormone replacement therapy; Z79.899 Other long term (current) drug therapy; Z88.1 Allergy status to other antibiotic agents; Z91.040 Latex allergy status; Z91.048 Other nonmedicinal substance allergy status
CPT/HCPCS: 99283

== ENCOUNTER → 2018-11-22 | Outpatient (CLI) | payer OTHER ==
--- NOTE | 2018-11-22 08:54 | XR ---
EXAMINATION TYPE: XR foot complete LT DATE OF EXAM: 11/22/2018 CLINICAL HISTORY: pain TECHNIQUE: Frontal, lateral and oblique images of the left foot are obtained. COMPARISON: None. FINDINGS: There is no acute fracture/dislocation evident. The joint spaces appear within normal gallegos its. The overlying soft tissue appears unremarkable. Plantar calcaneal spur formation noted. IMPRESSION: There is no acute fracture or dislocation. ICD 10 NO FRACTURE, INITIAL EVALUATION
== END ==
LOC: RADXRMAIN 08:22
PROVIDERS: ATTEND Emergency Medicine
DX: S97.1 Crushing injury of toe (principal)

== ENCOUNTER → 2018-12-04 | Outpatient (CLI) | payer BC ==
--- NOTE | 2018-12-04 13:41 | MM ---
Reason for exam: screening (asymptomatic). Last mammogram was performed 1 year and 1 month ago. History: Family history of breast cancer in grandmother at age 29 and breast cancer in maternal aunt at age 45. Physical Findings: A clinical breast exam by your physician is recommended on an annual basis and results should be correlated with mammographic findings. MG 3D Screening Mammo W/Cad Bilateral CC and MLO view(s) were taken. Prior study comparison: November 10, 2017, bilateral MG 3d screening mammo w/cad. April 01, 2014, bilateral MG screening mammo w CAD. There are scattered fibroglandular densities. Posterior central nodularity right CC view is new but has the apperance of a looped vessel on 3D images. Precautionary 6 month follow up recommended. ASSESSMENT: Probably benign, BI-RAD 3 RECOMMENDATION: Follow-up diagnostic mammogram of the right breast in 6 months.
== END | disposition home or self-care (01) ==
LOC: RADMAMWWP 06:44
PROVIDERS: ATTEND Obstetrics & Gynecology
DX: Z12.31 Encounter for screening mammogram for malignant neoplasm of breast (principal); Z80.3 Family history of malignant neoplasm of breast
CPT/HCPCS: 77063; 77067

== ENCOUNTER → 2019-02-28 | Outpatient (CLI) | payer BC ==
[2019-02-28 15:03] VITALS: BP 133/82; PULSE 62; RESP 18; TEMP 97.6
--- NOTE | 2019-02-28 16:05 | P.GSHP ---
History of Present Illness H&P Date: 02/28/19 Chief Complaint: abnormal mammogram [place] is a 43-year-old white female seen in consultation for Dr. Diaz Sierra regarding a BIRADS 3 mammogram, and positive family history of breast cancer. The mammogram was performed in November 2018. Posterior central nodularity in the right breast was noted this may be a looped vessel on 3-D images but precautionary six-month follow-up was recommended. The patient herself does not feel anything of concern in either breast. No nipple discharge or skin changes. The patient has had no history of recent trauma or infection in the breast. Nissa model risk assessment performed: 5 year breast cancer risk 0.6% compared with 1% for average 45-year-old Lifetime breast cancer risk 7% compared with 11.9% for average 45-year-old [place] risk model: lifetime risk: 10.8% average womans risk: 12.3% Caffeine: Minimal Nicotine: Negative Theophylline: Negative Family history: maternal grandmother: bilateral breast at 21 cancer maternal aunt: of breast cancer paternal great uncle: brain cancer paternal grandfather: cancer ? type Hormonal history: Menarche: 10 , breast fed: none, age at : 17 menopause: ablation done at 37, no periods BCP: 8 monhts hormones: none Surgical history: 1. 18 surgeries on ears bilateral 2. T&A medical history: Psoriasis Depression Lymphedema bilateral lower extremities Psoriatic arthritis Hypothyroid Social History: smoke: none alcohol: none drugs: none - Constitutional Constitutional: Denies chills, Denies fever - EENT Comment: 18 surgeries on ears Eyes: denies blurred vision, denies pain Ears: deny: decreased hearing, tinnitus Ears, nose, mouth and throat: Denies headache, Denies sore throat - Breasts Breasts: bilateral: as per HPI - Cardiovascular Cardiovascular: Denies chest pain, Denies shortness of breath - Respiratory Respiratory: Denies cough, Denies 7 - Gastrointestinal Gastrointestinal: Denies abdominal pain, Denies diarrhea, Denies nausea, Denies vomiting - Genitourinary (Female) Genitourinary: Denies dysuria, Denies hematuria - Menstruation Menstruation: Reports amenorrhea - Musculoskeletal Comment: psoriatic arthritis Musculoskeletal: Denies myalgias - Integumentary Comment: psoriasis - Neurological Neurological: Denies numbness, Denies weakness - Psychiatric Psychiatric: Reports depression - Endocrine Comment: hypothyroid - Hematologic/Lymphatic Comment: none - Allergic/Immunologic Allergic/Immunologic: Reports as per HPI Past Medical History Past Medical History: Thyroid Disorder Additional Past Medical History / Comment(s): lymphedema,cellulitis, psoriasis History of Any Multi-Drug Resistant Organisms: None Reported Past Surgical History: Ablation, Ear Surgery Past Anesthesia/Blood Transfusion Reactions: Postoperative Nausea & Vomiting (PONV) Past Psychological History: Depression Smoking Status: Never smoker Past Alcohol Use History: None Reported Past Drug Use History: None Reported - Past Family History Mother Family Medical History: Diabetes Mellitus, Sleep Apnea/CPAP/BIPAP, Thyroid Disorder Additional Family Medical History / Comment(s): "heart issues", smoker Medications and Allergies Home Medications Medication Instructions Recorded Confirmed Type Citalopram Hydrobromide [CeleXA] 40 mg PO HS 03/09/17 02/28/19 History Levothyroxine Sodium [Synthroid] 150 mcg PO HS 03/09/17 02/28/19 History Furosemide [Lasix] 20 mg PO DAILY 07/28/18 02/28/19 History Potassium 99 mg PO DAILY 02/28/19 02/28/19 History Allergies Allergy/AdvReac Type Severity Reaction Status Date / Time Latex, Natural Rubber Allergy Itching Verified 02/28/19 14:59 vancomycin Allergy Itching Verified 02/28/19 14:59 Surgical - Exam Vital Signs Temp Pulse Resp BP Pulse Ox 97.6 F 62 18 133/82 97 02/28/19 15:01 02/28/19 15:01 02/28/19 15:01 02/28/19 15:01 02/28/19 15:01 BMI 58.6 - General well developed, well nourished, no distress, obese - Eyes normal ocular movement - ENT normal nares - Neck no masses, trachea midline - Respiratory normal expansion, normal respiratory effort, clear to auscultation - Cardiovascular Rhythm: regular Heart Sounds: normal: S1, S2 - Abdomen Abdomen: soft, bowel sounds - Integumentary psoriasis - Neurologic no disoriented, no combative - Musculoskeletal bilateral lymphedema normal gait, normal posture - Psychiatric oriented to time, oriented to person, oriented to place, speech is normal, memory intact breast examination: 44DD, ptosis grade2/3 right breast: Multiple positional exam fibrocystic changes, skin changes of psoriasis, no dominant masses or nodules of concern Right axilla: No adenopathy of concern Left breast: Multiple positional exam no dominant masses or nodules of concern, skin changes of psoriasis, fibrocystic changes Left axilla: No adenopathy of concern fungal infection under each breast Results mammogram results reviewed Assessment and Plan Assessment: Impression: 1. BMI 58.6 obesity 2. mammogram 14433 probable benign BIRADS 3 follow-up right breast mammogram in 6 months 3. Fibrocystic breast changes 4. Psoriasis 5. Bilateral lower extremity lymphedema 6. Depression 7. Family history of breast cancer 8. fungal infection under each breast Plan: 1. Close surveillance 2. Patient given information on how to perform a breast exam 3. Repeat right breast mammogram in 6 months for physician exam at that time 4. Bilateral mammogram in 1 year 5. consider genetic counseling 6. nystatin under each breast Nissa risk model evaluation was performed and this shows the patient to be at lower than average risk for breast cancer. we discussed the possibility of genetic testing. The patient is interested and will consider this in the future. cc:Dr. Diaz Sierra Encounter 30 minutes > 50% of time spent in counselling and planning. Time with Patient: Greater than 30
== END ==
LOC: WWCWWP 14:18
PROVIDERS: ATTEND Surgery
DX: Z53.9 Procedure and treatment not carried out, unspecified reason (principal)

== ENCOUNTER → 2019-04-16 | Outpatient (CLI) | payer BC ==
--- NOTE | 2019-04-16 15:52 | P.PN ---
Subjective Progress Note Date: 04/16/19 44-year-old female patient with known history of obstructive sleep apnea. She was diagnosed having severe HENRY with an AHI of 107 and she has been treated with CPAP at a pressure of 14 cm of water. Her last evaluation here in the sleep center was back in 2018. Back then she is to weigh 274 pounds as the patient was gradually losing weight. She has also history of psoriasis and she has diffuse body aches related to psoriatic arthritis. She did respond well to CPAP therapy in the past and the patient was using an airfit F20 fullface mask. She is coming in for a routine check. She also has history of depression. She has history of hypothyroidism.Since her last evaluation. Patient has stayed very compliant with CPAP therapy. The patient is utilizing her machine every night. She's been averaging around 8.4 hours a CPAP use per night. CPAP use for more than 4 hours is above 90%. Her pressures at 14 cm and the leak is at 5 L per minute and the AHI while on treatment at 0.2 and she is using an airfit F20 fullface mask small size. She has no complaints and the machine is functioning well without any major difficulties. She is going to bed at around 8 PM she is getting out of the bed at 7 AM in the morning. She does not take any naps during the day. No snoring while in the CPAP machine. No significant dryness in her mouth and humidity level is at 4. She is still working at [employer]. I'm pleased to report that the patient has lost more weight and currently is down to 160 pounds from a baseline of above to 80. Medication list includes Celexa, Lasix, Synthroid and potassium tablets. Objective - Exam BP is 138/86, pulse of 86, respiration of 16, weight is 262, it is 50, temperature 97.7, saturation 96% on room air Advance score is 11 The patient appeared well nourished and normally developed. Vital signs as documented. Head exam is unremarkable. No scleral icterus or corneal arcus noted. Neck is without jugular venous distension, thyromegaly, or carotid bruits. Carotid upstrokes are brisk bilaterally. Lungs are clear to auscultation and percussion. Cardiac exam reveals the PMI to be normally sized and situated. Rhythm is regular. First and second heart sounds normal. No murmurs, rubs or gallops. Abdominal exam reveals normal bowel sounds, no masses, no organomegaly and no aortic enlargement. Extremities are nonedematous and both femoral and pedal pulses are normal.Skin examination the patient extensive psoriatic patches throughout her body and face and upper and lower extremities. Neurologically the patient is awake and alert and is no focal neurological deficits. Assessment and Plan Plan: 1 severe HENRY with an AHI of 107 currently on CPAP of 14 cm H20 2 obesity 3 psoriasis 4 psoriasis arthritis 5 hypertension 6 Depression on clelexa Plan The patient has been treated very successfully regarding her obstructive sleep apnea. Encourage further weight loss. She has already lost considerable amount of weight. I'm going to keep her at a pressure of 14 cm of water. I'm going to renew her supplies including the new tubing, the mask, and the filters. She is currently using airfit F20. Face mask, small size. Other comorbidities are all inactive and stable.
== END | disposition home or self-care (01) ==
LOC: SLEEP 15:36
PROVIDERS: ATTEND Internal Medicine Critical Care Medicine
DX: G47.33 Obstructive sleep apnea (adult) (pediatric) (principal); E66.9 Obesity, unspecified; L40.50 Arthropathic psoriasis, unspecified; I10 Essential (primary) hypertension; Z99.89 Dependence on other enabling machines and devices; Z79.899 Other long term (current) drug therapy

== ENCOUNTER → 2019-07-29 | Outpatient (CLI) | payer BC ==
--- NOTE | 2019-07-30 08:02 | MM ---
Reason for exam: follow-up at short interval from prior study. Last mammogram was performed 8 months ago. History: Family history of breast cancer in grandmother at age 29 and breast cancer in maternal aunt at age 45. Physical Findings: Nurse did not find any significant physical abnormalities on exam. MG 3D Diag Mammo W/Cad RT CC, MLO, and XCCL view(s) were taken of the right breast. Prior study comparison: December 04, 2018, bilateral MG 3d screening mammo w/cad. November 10, 2017, bilateral MG 3d screening mammo w/cad. There are scattered fibroglandular densities. There is no discrete abnormality. No significant new findings when compared with previous films. These results were verbally communicated with the patient and result sheet given to the patient on 07/29/19. ASSESSMENT: Benign, BI-RAD 2 RECOMMENDATION: Return to routine screening mammogram schedule for both breasts. Back on schedule for November 2019.
== END | disposition home or self-care (01) ==
LOC: RADMAMWWP 08:19
PROVIDERS: ATTEND Surgery
DX: R92.8 Other abnormal and inconclusive findings on diagnostic imaging of breast (principal)
CPT/HCPCS: 77061; 77065

== ENCOUNTER → 2019-08-07 | Outpatient (CLI) | payer BC ==
--- NOTE | 2019-08-07 11:24 | XR ---
EXAMINATION TYPE: XR foot limited LT DATE OF EXAM: 08/07/2019 CLINICAL HISTORY: pain, puncture site rule out foreign body TECHNIQUE: Frontal, lateral and oblique images of the left foot are obtained. COMPARISON: None. FINDINGS: There is no acute fracture/dislocation evident. The joint spaces appear within normal gallegos its. The overlying soft tissue appears free of radiopaque foreign body. IMPRESSION: There is no acute fracture or dislocation. ICD 10 NO FRACTURE, INITIAL EVALUATION
== END | disposition home or self-care (01) ==
LOC: RADXRMAIN 10:25
PROVIDERS: ATTEND Family Medicine
DX: M79.672 Pain in left foot (principal); S91.342A Puncture wound with foreign body, left foot, initial encounter

== ENCOUNTER → 2019-09-05 | Outpatient (CLI) | payer BC ==
--- NOTE | 2019-09-05 15:51 | XR ---
EXAMINATION TYPE: XR foot complete LT DATE OF EXAM: 09/05/2019 CLINICAL HISTORY: Persistent pain, possible retained foreign body after recent injury. TECHNIQUE: Frontal, lateral, and oblique images of the left foot are obtained. COMPARISON: Prior left foot x-ray August 07, 2019. FINDINGS: There is no acute fracture/dislocation evident in the left foot. The joint spaces in the left foot remain within normal limits. Small inferior calcaneal spur redemonstrated. Moderate to tanya re diffuse subcutaneous edema redemonstrated. No suspicious radiodense soft tissue foreign body clear ly seen though glass fragments may be radiolucent. No significant change from prior. IMPRESSION: As above.
== END | disposition home or self-care (01) ==
LOC: RADXRMAIN 15:19
PROVIDERS: ATTEND Family Medicine
DX: S90.852A Superficial foreign body, left foot, initial encounter (principal)

== ENCOUNTER → 2020-04-14 | Outpatient (CLI) | payer BC ==
--- NOTE | 2020-04-14 18:51 | PN ---
PROGRESS NOTE [place] is coming in for an annual check regarding obstructive sleep apnea. She has severe HENRY with an AHI of 107, and she remains on a CPAP pressure of 14 cm of water. Treatment has remained extremely successful. The patient remains compliant. The patient utilizes her machine more than 90% of the time. Her CPAP use for more than 4 hours is above 90%. Over the past 30 days, she has utilized her machine 28/30 days, achieving an average of 6 hours of CPAP use per night with a leak of 11 L/minute, and her AHI is down to 0.2. She is still using an AirFit F20 medium-sized full-face mask. No new complaints. BP is under good control. No hypersomnia or sleepiness during the day. Many score is 5. She is functional and she is working. Her hemodynamic parameters have been all stable without any cardiovascular events over the past one year. REVIEW OF SYSTEMS: Fourteen-point review of system was done. Positive findings are mentioned above in the history of present illness. Of significance is the weight loss and subsequent weight gain, and the patient's weight has been stable since her diagnosis of sleep apnea at 274 pounds. PHYSICAL EXAMINATION: BP is 145/78, pulse 92, respirations 12, temperature 97.9, saturation 96% on room air. Height is 5 feet 0 inches. Weight is 274. GENERAL APPEARANCE: Obese, calm, comfortable. HEAD: Atraumatic, normocephalic. NECK: Supple. No JVD. No goiter or neck masses. Mallampati class IV. LUNGS: Clear to auscultation. HEART: Heart sounds are regular rate and rhythm. Normal S1, S2. No S3, S4. No murmurs. ABDOMEN: Soft, nontender. No organomegaly. EXTREMITIES: No edema. No cyanosis or clubbing. NEUROLOGIC: Awake and alert. There is no focal neurological deficit. IMPRESSION: 1. Symptomatic obstructive sleep apnea with an AHI of 107, successfully treated with a CPAP pressure of 14 cm of water. Hypersomnia improved. Many score is down to 5. 2. Obesity, stable, with a weight of 274 and a body mass index of 52.4. 3. Hypothyroidism. 4. Hypertension. 5. Chronic osteoarthritis. PLAN: 1. Continue CPAP with a pressure of 14. 2. Continue the same mask, which is an AirFit F20 full-face mask, medium size. Refills were given. 3. Encourage weight loss. Sleep hygiene measures are adequate. Treatment has been successful without any new-onset comorbidities. See me back in a year's time in followup. MMODL / IJN: [id number] /
== END | disposition home or self-care (01) ==
LOC: SLEEP 15:36
PROVIDERS: ATTEND Internal Medicine Critical Care Medicine
DX: G47.33 Obstructive sleep apnea (adult) (pediatric) (principal); E66.9 Obesity, unspecified; E03.9 Hypothyroidism, unspecified; I10 Essential (primary) hypertension; M19.90 Unspecified osteoarthritis, unspecified site; Z68.43 Body mass index [BMI] 50.0-59.9, adult; Z99.89 Dependence on other enabling machines and devices

== ENCOUNTER → 2021-07-13 | Outpatient (CLI) | payer BC ==
--- NOTE | 2021-07-13 16:19 | P.PN ---
Subjective Progress Note Date: 07/13/21 46-year-old male patient diagnosed having severe obstructive sleep apnea coming in to see me for regular check. The patient has been treated with CPAP therapy at a pressure of 14 cm of water. She continues to do extremely well on CPAP , and the patientis committed to the treatment that the patient has seen significant amount of clinical response and the patient's sleep quality is improved considerably while on CPAP therapy.the patient reports that her sleep quality is good. She has no difficulties with sleep initiation and maintenance pain no sleep fragmentation. The patient continues to use her CPAP. I checked a 30 day compliancy date on this patient. Based on the machine recordings, the patient has been averaging around 9.3 hours of CPAP use per night. The patient has utilize CPAP machine more than 4 hours 100% of the time. The patient's leak is in order of 6 L per minute and the patient's AHI is down to 0.2. Her weight is down from 274 pounds to 265 pounds. The patient is in need for a new facemask. She is currently utilizing an airfit F20 fullface mask small size. No angina. No palpitations. No stroke. No cardiac arrhythmias. Her condition has remained stable. Her weight is down. The current Attalla score is at 11. Objective - Exam the patient's blood pressure is 133/82 with a possibility for a respiration of 16 and a temperature 97.2. Attalla score is at 11. Weight is 265. Oxygen saturation 90% on room air. Gen. appearance obese, comfortable and the patient is not having any respiratory distress.The patient appeared well nourished and normally developed. Vital signs as documented. Head exam is unremarkable. No scleral icterus or corneal arcus noted. Neck is without jugular venous distension, thyromegaly, or carotid bruits. the patient has a Mallampati class IVCarotid upstrokes are brisk bilater ally. Lungs are clear to auscultation and percussion. Cardiac exam reveals the PMI to be normally sized and situated. Rhythm is regular. First and second heart sounds normal. No murmurs, rubs or gallops. Abdominal exam reveals normal bowel sounds, no masses, no organomegaly and no aortic enlargement. Extremities are nonedematous and both femoral and pedal pulses are normal.the patient has psoriatic patches throughout the face and upper and lower extremities and the trunk.Neurologically, the patient is awake and alert and the patient does not have any focal neurological deficit. Cranial nerves are essentially intact. Assessment and Plan Plan: 1 severe obstructive sleep apnea with an AHI of 107. The patient is receiving successful CPAP therapy at a pressure of 14 cm of water 2 hypersomnia, recovered 3 morbid obesity , there is interval weight loss in order of 9 pounds in the patient's weight is down to 265 4 psoriasis 5 hypertension 6 hypothyroidism Plan check the compliancy. The patient is utilizing the CPAP effectivelyand the treatment is successful. Keep same pressure of 14 cm of water. Encourage further weight loss. Offered the patient airfit F20 fullface mask small size. Sleep hygiene measures of good. the patient has no issues or complaints. Hemodynamically stable. Machine is functional. Compliance data was checked. We'll see back in one years time.
== END | disposition home or self-care (01) ==
LOC: SLEEP 14:51
PROVIDERS: ATTEND Internal Medicine Critical Care Medicine
DX: G47.33 Obstructive sleep apnea (adult) (pediatric) (principal); G47.10 Hypersomnia, unspecified; E66.01 Morbid (severe) obesity due to excess calories; L40.9 Psoriasis, unspecified; I10 Essential (primary) hypertension; E03.9 Hypothyroidism, unspecified

== ENCOUNTER 2021-10-17 00:20 | Observation (INO) | payer BC ==
[2021-10-17] MEDS ORDERED: ACETAMINOPHEN TAB 500 MG TAB PO STA (00:58)
--- NOTE | 2021-10-17 01:04 | ED ---
General Adult HPI - General Chief complaint: Chest Pain Stated complaint: Chest Pain Time Seen by Provider: 10/17/21 00:21 Source: patient Mode of arrival: EMS Limitations: no limitations - History of Present Illness Initial comments: Dictation was produced using [employer] dictation software. please excuse any grammatical, word or spelling errors. Chief Complaint: 46-year-old female presents emergency department for cough and chest pain History of Present Illness: Patient is a 46-year-old female she has past medical history of lymphedema and psoriasis. She presents emergency department for chest pain. He states that it's a michaud-like sensation to her anterior chest. Auscultation is been having symptoms of cold. She's been having productive cough and fevers. Patient also complains of diffuse vague abdominal pain. She has been having regular bowel movements. She is given a nitroglycerin by prehospital providers with no relief of her symptoms. The ROS documented in this emergency department record has been reviewed and confirmed by me. Those systems with pertinent positive or negative responses have been documented in the HPI. All other systems are other negative and/or noncontributory. PHYSICAL EXAM: General Impression: Alert and oriented x3, not in acute distress HEENT: Normocephalic atraumatic, extra-ocular movements intact, pupils equal and reactive to light bilaterally, mucous membranes moist. Cardiovascular: Heart regular rate and rhythm Chest: Able to complete full sentences, no retractions, no tachypnea, clear to auscultation bilaterally Abdomen: abdomen soft, non-tender, non-distended, no organomegaly Musculoskeletal: Pulses present and equal in all extremities, no peripheral edema Motor: no focal deficits noted Neurological: CN II-XII grossly intact, no focal motor or sensory deficits noted Skin: Intact with no visualized rashes Psych: Normal affect and mood ED course: 46-year-old female presents emergency Department with respiratory infectious symptoms and chest pressure. Chest symptoms are atypical chest pain typical features. Signs upon arrival shows temperature 10 1F, heart rate of 113, 93% on room air. She received aspirin and nitroglycerin by prehospital providers. Laboratory evaluation obtained. Mild leukocytosis of 12.4. Coag panel is negative. Metabolic panel is within acceptable limits troponin is negative. 4 panel viral PCR is negative for influenza, RSV in coronavirus. Chest x-ray shows pleural effusions. No obvious infiltrate. Patient is having her ataxia and acute infectious respiratory symptoms. There is suspicion of bacterial pneumonia. Patient also having chest pain concerning for ACS. Patient be admitted for cardiac monitoring. Patient treated with azithromycin ceftriaxone. Patient is agreeable to plan. EKG interpretation: Ventricular rate 103, sinus tachycardia,. 170, care is 105, QTC 409. No [place] prolongation, no QTC prolongation, no ST or T-wave changes noted. Overall, this EKG is unremarkable - Related Data Home Medications Medication Instructions Recorded Confirmed Citalopram Hydrobromide [CeleXA] 40 mg PO HS 03/09/17 02/28/19 Levothyroxine Sodium [Synthroid] 150 mcg PO HS 03/09/17 02/28/19 Furosemide [Lasix] 20 mg PO DAILY 07/28/18 02/28/19 Potassium 99 mg PO DAILY 02/28/19 02/28/19 Allergies Allergy/AdvReac Type Severity Reaction Status Date / Time Latex, Natural Rubber Allergy Itching Verified 02/28/19 14:59 vancomycin Allergy Itching Verified 02/28/19 14:59 Review of Systems ROS Statement: Those systems with pertinent positive or pertinent negative responses have been documented in the HPI. ROS Other: All systems not noted in ROS Statement are negative. Past Medical History Past Medical History: Thyroid Disorder Additional Past Medical History / Comment(s): lymphedema,cellulitis, psoriasis History of Any Multi-Drug Resistant Organisms: None Reported Past Surgical History: Ablation, Ear Surgery Past Anesthesia/Blood Transfusion Reactions: Postoperative Nausea & Vomiting (PONV) Past Psychological History: Depression Past Alcohol Use History: None Reported Past Drug Use History: None Reported - Past Family History Mother Family Medical History: Diabetes Mellitus, Sleep Apnea/CPAP/BIPAP, Thyroid Disorder Additional Family Medical History / Comment(s): "heart issues", smoker General Exam Limitations: no limitations Course Vital Signs 10/17/21 00:37 Temperature 101 F H Pulse Rate 113 H Respiratory 18 Rate Blood Pressure 115/78 O2 Sat by Pulse 93 L Oximetry Medical Decision Making - Lab Data Result diagrams: 10/17/21 01:44 10/17/21 01:44 Lab Results 10/17/21 10/17/21 10/17/21 Range/Units 01:44 01:44 01:44 WBC 12.4 H (3.8-10.6) k/uL RBC 4.65 (3.80-5.40) m/uL Hgb 12.7 (11.4-16.0) gm/dL Hct 39.1 (34.0-46.0) % MCV 84.1 (80.0-100.0) fL MCH 27.4 (25.0-35.0) pg MCHC 32.5 (31.0-37.0) g/dL RDW 13.3 (11.5-15.5) % Plt Count 257 (150-450) k/uL MPV 7.2 Neutrophils % 75 % Lymphocytes % 15 % Monocytes % 7 % Eosinophils % 1 % Basophils % 0 % Neutrophils # 9.3 H (1.3-7.7) k/uL Lymphocytes # 1.9 (1.0-4.8) k/uL Monocytes # 0.9 (0-1.0) k/uL Eosinophils # 0.1 (0-0.7) k/uL Basophils # 0.0 (0-0.2) k/uL PT 10.3 (9.0-12.0) sec INR 0.9 (<1.2) APTT 22.7 (22.0-30.0) sec Sodium 132 L (137-145) mmol/L Potassium 3.9 (3.5-5.1) mmol/L Chloride 104 (98-107) mmol/L Carbon Dioxide 22 (22-30) mmol/L Anion Gap 6 mmol/L BUN 15 (7-17) mg/dL Creatinine 0.45 L (0.52-1.04) mg/dL Est GFR (CKD-EPI)AfAm >90 (>60 ml/min/1.73 sqM) Est GFR (CKD-EPI)NonAf >90 (>60 ml/min/1.73 sqM) Glucose 111 H (74-99) mg/dL Plasma Lactic Acid Mat (0.7-2.0) mmol/L Calcium 8.8 (8.4-10.2) mg/dL Magnesium 1.7 (1.6-2.3) mg/dL Troponin I (0.000-0.034) ng/mL Influenza Type A (PCR) (Not Detectd) Influenza Type B (PCR) (Not Detectd) RSV (PCR) (Not Detectd) SARS-CoV-2 (PCR) (Not Detectd) 10/17/21 10/17/21 10/17/21 Range/Units 01:44 01:44 01:56 WBC (3.8-10.6) k/uL RBC (3.80-5.40) m/uL Hgb (11.4-16.0) gm/dL Hct (34.0-46.0) % MCV (80.0-100.0) fL MCH (25.0-35.0) pg MCHC (31.0-37.0) g/dL RDW (11.5-15.5) % Plt Count (150-450) k/uL MPV Neutrophils % % Lymphocytes % % Monocytes % % Eosinophils % % Basophils % % Neutrophils # (1.3-7.7) k/uL Lymphocytes # (1.0-4.8) k/uL Monocytes # (0-1.0) k/uL Eosinophils # (0-0.7) k/uL Basophils # (0-0.2) k/uL PT (9.0-12.0) sec INR (<1.2) APTT (22.0-30.0) sec Sodium (137-145) mmol/L Potassium (3.5-5.1) mmol/L Chloride (98-107) mmol/L Carbon Dioxide (22-30) mmol/L Anion Gap mmol/L BUN (7-17) mg/dL Creatinine (0.52-1.04) mg/dL Est GFR (CKD-EPI)AfAm (>60 ml/min/1.73 sqM) Est GFR (CKD-EPI)NonAf (>60 ml/min/1.73 sqM) Glucose (74-99) mg/dL Plasma Lactic Acid Mat 0.7 (0.7-2.0) mmol/L Calcium (8.4-10.2) mg/dL Magnesium (1.6-2.3) mg/dL Troponin I <0.012 (0.000-0.034) ng/mL Influenza Type A (PCR) Not Detected (Not Detectd) Influenza Type B (PCR) Not Detected (Not Detectd) RSV (PCR) Not Detected (Not Detectd) SARS-CoV-2 (PCR) Not Detected (Not Detectd) Disposition Clinical Impression: Chest pain, Pneumonia Disposition: ADMITTED IP TO THIS HOSP Condition: Fair Referrals: Diaz Sierra DO [Primary Care Provider] - 1-2 days Decision Time: 02:53
[2021-10-17 01:58] LABS: Basophils % (A) 0 %; Eosinophils # (A) 0.1 k/uL (0-0.7); Eosinophils % (A) 1 %; HCT 39.1 % (34.0-46.0); HGB 12.7 gm/dL (11.4-16.0); Lymphocytes # (A) 1.9 k/uL (1.0-4.8); Lymphocytes % (A) 15 %; MCH 27.4 pg (25.0-35.0); MCHC 32.5 g/dL (31.0-37.0); MCV 84.1 fL (80.0-100.0); Mean Platelet Volume 7.2; Monocytes # (A) 0.9 k/uL (0-1.0); Monocytes % (A) 7 %; Neutrophils # (A) 9.3 k/uL (1.3-7.7); Neutrophils % (A) 75 %; Platelet Count 257 k/uL (150-450); RBC 4.65 m/uL (3.80-5.40); RDW 13.3 % (11.5-15.5); WBC 12.4 k/uL (3.8-10.6)
--- NOTE | 2021-10-17 02:02 | XR ---
EXAMINATION TYPE: XR chest 2V DATE OF EXAM: 10/17/2021 COMPARISON: 10/08/2016 HISTORY: Chest pain TECHNIQUE: FINDINGS: Heart and mediastinum are normal. Lungs are clear of infiltrate. There is slight blunting o f the costophrenic angles. There are no hilar masses. No heart failure. Bony thorax is intact. IMPRESSION: There are small pleural effusions which are new compared to old exam.
[2021-10-17 02:05] LABS: African American GFR (CKD) >90 (>60 ml/min/1.73 sqM); Anion Gap 6 mmol/L; Blood Urea Nitrogen 15 mg/dL (7-17); Calcium 8.8 mg/dL (8.4-10.2); Carbon Dioxide 22 mmol/L (22-30); Chloride 104 mmol/L (98-107); Glucose 111 mg/dL (74-99); Magnesium 1.7 mg/dL (1.6-2.3); Non-African American GFR(CKD) >90 (>60 ml/min/1.73 sqM); Potassium 3.9 mmol/L (3.5-5.1); Sodium 132 mmol/L (137-145)
[2021-10-17 02:14] LABS: INR 0.9 (<1.2); Partial Thromboplastin Time 22.7 sec (22.0-30.0); Prothrombin Time 10.3 sec (9.0-12.0)
[2021-10-17] MEDS ORDERED: AZITHROMYCIN 500 MG in SODIUM CHLORIDE 0.9% 250 ML IVPB ONE (02:49)
[2021-10-17] MEDS ORDERED: cefTRIAXone IN SWFI 1,000 MG/10 ML SYRINGE IVP STA (02:49)
[2021-10-17] MEDS ORDERED: NITROGLYCERIN SL TABS 0.4 MG TAB SUBLINGUAL PRN (02:54)
[2021-10-17] MEDS: SODIUM CHLORIDE 0.9% 1,000 ML IV SCH (10:21)
[2021-10-17] MEDS: ACETAMINOPHEN TAB 325 MG TAB PO PRN ×2 (10:21→16:14)
--- NOTE | 2021-10-17 10:47 | P.HPIM ---
History of Present Illness Patient is a pleasant 46-year-old female came in with complaints of neck congestion cough cold fever chills. Patient started having fever chills yesterday patient has a URI like symptoms and sinusitis for last few days. Chest x-ray showed infiltrate with mild light right-sided pleural effusion. Patient does have leukocytosis. Patient was started on Rocephin and azithromycin which will be continued. Patient has mild pleuritic chest pain and does have productive cough. REVIEW OF SYSTEMS: CONSTITUTIONAL: As mentioned in HPI HEENT: No recent visual problems or hearing problems. Denied any sore throat. CARDIOVASCULAR: No orthopnea, PND, no palpitations, no syncope. PULMONARY: No shortness of breath,, no hemoptysis. GASTROINTESTINAL: No diarrhea, no nausea, no vomiting, no abdominal pain. NEUROLOGICAL: No headaches, no weakness, no numbness. HEMATOLOGICAL: Denies any bleeding or petechiae. GENITOURINARY: Denies any burning micturition, frequency, or urgency. MUSCULOSKELETAL/RHEUMATOLOGICAL: Denies any joint pain, swelling, or any muscle pain. ENDOCRINE: Denies any polyuria or polydipsia. The rest of the 14-point review of systems is negative. PHYSICAL EXAMINATION: GENERAL: The patient is alert and oriented x3, not in any acute distress. Well developed, well nourished. HEENT: Pupils are round and equally reacting to light. EOMI. No scleral icterus. No conjunctival pallor. Normocephalic, atraumatic. No pharyngeal erythema. No thyromegaly. CARDIOVASCULAR: S1 and S2 present. No murmurs, rubs, or gallops. PULMONARY: Chest is clear to auscultation, no wheezing or crackles. ABDOMEN: Soft, nontender, nondistended, normoactive bowel sounds. No palpable organomegaly. MUSCULOSKELETAL: No joint swelling or deformity. EXTREMITIES: No cyanosis, clubbing, or pedal edema. NEUROLOGICAL: Gross neurological examination did not reveal any focal deficits. SKIN: No rashes. Assessment and plan -Sepsis: Secondary to come in today quite pneumonia right lower lobe pneumonia with the past and chronic effusion along with the Bactrim sinusitis patient will be continued on Rocephin and azithromycin next and-hypovolemic hyponatremia: Secondary to sepsis, patient will be started on IV fluids -Hypothyroidism -History of psoriasis -Sleep apnea and uses CPAP machine which she'll continue DVT prophylaxis: Lovenox Past Medical History Past Medical History: Thyroid Disorder Additional Past Medical History / Comment(s): lymphedema,cellulitis, psoriasis History of Any Multi-Drug Resistant Organisms: None Reported Past Surgical History: Ablation, Ear Surgery Past Anesthesia/Blood Transfusion Reactions: Postoperative Nausea & Vomiting (PONV) Past Psychological History: Depression Smoking Status: Never smoker Past Alcohol Use History: None Reported Past Drug Use History: None Reported - Past Family History Mother Family Medical History: Diabetes Mellitus, Sleep Apnea/CPAP/BIPAP, Thyroid Disorder Additional Family Medical History / Comment(s): "heart issues", smoker Medications and Allergies Home Medications Medication Instructions Recorded Confirmed Type Citalopram Hydrobromide [CeleXA] 40 mg PO HS 03/09/17 02/28/19 History Levothyroxine Sodium [Synthroid] 150 mcg PO HS 03/09/17 02/28/19 History Furosemide [Lasix] 20 mg PO DAILY 07/28/18 02/28/19 History Potassium 99 mg PO DAILY 02/28/19 02/28/19 History Allergies Allergy/AdvReac Type Severity Reaction Status Date / Time Latex, Natural Rubber Allergy Itching Verified 02/28/19 14:59 vancomycin Allergy Itching Verified 02/28/19 14:59 Physical Exam Vitals: Vital Signs Temp Pulse Pulse Resp BP BP Pulse Ox 10/17/21 08:02 96 10/17/21 07:25 69 18 114/73 96 10/17/21 07:00 97.6 F 62 16 144/85 96 10/17/21 03:15 72 16 113/55 93 L 10/17/21 00:37 101 F H 113 H 18 115/78 93 L Intake and Output 10/16/21 10/17/21 10/17/21 22:59 06:59 14:59 Other: Weight 126.099 kg Results CBC & Chem 7: 10/17/21 01:44 10/17/21 01:44 Labs: Abnormal Lab Results - Last 24 Hours (Table) 10/17/21 10/17/21 Range/Units 01:44 01:44 WBC 12.4 H (3.8-10.6) k/uL Neutrophils # 9.3 H (1.3-7.7) k/uL Sodium 132 L (137-145) mmol/L Creatinine 0.45 L (0.52-1.04) mg/dL Glucose 111 H (74-99) mg/dL Thrombosis Risk Factor Assmnt - Choose All That Apply Each Factor Represents 1 point: Age 41-60 years, Swollen legs (current) Other Risk Factors: No Thrombosis Risk Factor Assessment Total Risk Factor Score: 2 Thrombosis Risk Factor Assessment Level: Low Risk
[2021-10-17] MEDS: AZITHROMYCIN 500 MG TAB PO SCH (20:20)
[2021-10-17] MEDS: CITALOPRAM HYDROBROMIDE 20 MG TAB PO SCH (20:20)
[2021-10-17] MEDS ORDERED: LEVOTHYROXINE 75 MCG TAB PO SCH (21:00)
[2021-10-18] MEDS: SODIUM CHLORIDE 0.9% 1,000 ML IV SCH ×2 (00:27→14:56)
[2021-10-18] MEDS: ACETAMINOPHEN TAB 325 MG TAB PO PRN ×3 (03:27→18:52)
[2021-10-18 08:47] LABS: HCT 37.9 % (37.2-46.3); HGB 11.7 g/dL (12.0-15.0); MCH 26.8 pg (27.0-32.0); MCHC 30.9 g/dL (32.0-37.0); MCV 86.9 fL (80.0-97.0); Mean Platelet Volume 9.2 fL (9.5-12.2); NRBC Per 100 WBC 0 /100 WBCS (0.0-0.0); Platelet Count 236 X 10*3/uL (140-440); RBC 4.36 X 10*6/uL (4.10-5.20); RDW 13.3 % (11.5-14.5); WBC 8.53 X 10*3/uL (4.50-10.00)
[2021-10-18 09:06] LABS: African American GFR (CKD) 132.6 (60.0-200.0); Blood Urea Nitrogen 12.5 mg/dL (9.0-27.0); Calcium 8.6 mg/dL (8.7-10.3); Carbon Dioxide 24.7 mmol/L (20.0-27.5); Chloride 105 mmol/L (96-109); Chol/HDL Ratio 4.23 Ratio; Glucose 98 mg/dL (70-110); LDL Cholesterol,Calculated 72.5 mg/dL (0.0-131.0); Non-African American GFR(CKD) 114.4 (60.0-200.0); Potassium 4.5 mmol/L (3.5-5.5); Sodium 137 mmol/L (135-145)
[2021-10-18] MEDS: ASPIRIN 325 MG TAB PO SCH (10:03)
[2021-10-18] MEDS: ENOXAPARIN 40 MG/0.4 ML SYRINGE SQ SCH (10:03)
[2021-10-18] MEDS: POTASSIUM CHLORIDE ER 20 MEQ TAB.ER PO SCH (13:26)
[2021-10-18] MEDS: LEVOTHYROXINE 88 MCG TAB PO SCH (13:26)
[2021-10-18] MEDS: MULTIVITAMINS, THERA 1 EACH TAB PO SCH (13:26)
[2021-10-18] MEDS: FUROSEMIDE 20 MG TAB PO SCH (13:26)
[2021-10-18] MEDS: lisinopriL 20 MG TAB PO SCH (13:30)
[2021-10-18] MEDS: amLODIPine 5 MG TAB PO SCH (13:30)
--- NOTE | 2021-10-18 14:44 | XR ---
EXAMINATION TYPE: XR chest 2V DATE OF EXAM: 10/18/2021 2:30 PM COMPARISON: Chest radiographs from 10/17/2021. TECHNIQUE: XR chest 2V Frontal and lateral views of the chest. CLINICAL INDICATION:Female, 46 years old with history of f/u pneumonia; FINDINGS: Lungs/Pleura: There is no evidence of pleural effusion, focal consolidation, or pneumothorax. Pulmonary vascularity: Unremarkable. Heart/mediastinum: Cardiomediastinal silhouette is prominent but stable. Musculoskeletal: No acute osseous pathology. IMPRESSION: No acute cardiopulmonary disease/process.
[2021-10-18] MEDS: AZITHROMYCIN 500 MG TAB PO SCH (20:45)
[2021-10-18] MEDS: CITALOPRAM HYDROBROMIDE 20 MG TAB PO SCH (20:45)
[2021-10-18] MEDS ORDERED: DOCUSATE 100 MG CAP PO SCH (22:15)
[2021-10-18] MEDS: IBUPROFEN 800 MG TAB PO PRN (23:53)
[2021-10-19] MEDS: SODIUM CHLORIDE 0.9% 1,000 ML IV SCH ×2 (02:15→04:00)
[2021-10-19 02:33] VITALS: RESP 17; TEMP 97.8
[2021-10-19] MEDS: ACETAMINOPHEN TAB 325 MG TAB PO PRN (05:28)
[2021-10-19] MEDS: LEVOTHYROXINE 88 MCG TAB PO SCH (05:30)
[2021-10-19 07:33] VITALS: BP 129/81; PULSE 69
[2021-10-19] MEDS: FUROSEMIDE 20 MG TAB PO SCH (08:08)
[2021-10-19] MEDS: POTASSIUM CHLORIDE ER 20 MEQ TAB.ER PO SCH (08:08)
[2021-10-19] MEDS: IBUPROFEN 800 MG TAB PO PRN (08:08)
[2021-10-19] MEDS: ASPIRIN 325 MG TAB PO SCH (08:08)
[2021-10-19] MEDS: amLODIPine 5 MG TAB PO SCH (08:08)
[2021-10-19] MEDS: MULTIVITAMINS, THERA 1 EACH TAB PO SCH (08:09)
[2021-10-19] MEDS: ENOXAPARIN 40 MG/0.4 ML SYRINGE SQ SCH (08:09)
[2021-10-19] MEDS: lisinopriL 20 MG TAB PO SCH (08:09)
[2021-10-19] MEDS ORDERED: polyethylene glycoL 3350 17 GM POWD.PACK PO STA (09:51)
--- NOTE | 2021-10-19 11:58 | P.PN ---
Subjective Progress Note Date: 10/18/21 This a 46-year-old female admitted with right lower lobe pneumonia, hyponatremia and multiple other medical issues. Maintained on IV fluid hydration, Rocephin, Zithromax. Feels better this morning, maintaining O2 sats in the mid 90s on room air, no cough. Afebrile. Denies chest pain, palpitations or increasing shortness of breath. Objective - Vital Signs Vital signs: Vital Signs Temp 97.8 F 10/18/21 13:17 Pulse 65 10/18/21 13:17 Resp 18 10/18/21 13:17 BP 127/74 10/18/21 13:17 Pulse Ox 95 10/18/21 13:17 FiO2 Intake & Output 10/17/21 10/18/21 10/18/21 18:59 06:59 18:59 Intake Total 468 360 Balance 468 360 Intake: Intake, IV Titration 350 Amount Sodium Chloride 0.9% 1, 300 000 ml @ 75 mls/hr IV . [id number] LINDA Rx#:[id number] cefTRIAXone 2 gm In 50 Sodium Chloride 0.9% 50 ml @ 100 mls/hr IVPB Q24HR LINDA Rx#:[id number] Oral 118 360 Other: # Voids 2 1 - Exam PHYSICAL EXAMINATION: GENERAL: Sitting up at side of bed, alert and oriented x3, not in any acute distress. HEENT: Pupils are round and equally reacting to light. EOMI. No scleral icterus. No conjunctival pallor. Normocephalic, atraumatic. CARDIOVASCULAR: S1 and S2 present. No murmurs, rubs, or gallops. PULMONARY: Chest is clear to auscultation, no wheezing or crackles. ABDOMEN: Soft, nontender, nondistended, normoactive bowel sounds. No palpable organomegaly. EXTREMITIES: No cyanosis, clubbing, or pedal edema. NEUROLOGICAL: Gross neurological examination did not reveal any focal deficits. SKIN: No rashes. - Labs CBC & Chem 7: 10/18/21 03:12 10/18/21 03:12 Labs: Abnormal Lab Results - Last 24 Hours (Table) 10/18/21 10/18/21 Range/Units 03:12 03:12 Hgb 11.7 L (12.0-15.0) g/dL MCH 26.8 L (27.0-32.0) pg MCHC 30.9 L (32.0-37.0) g/dL MPV 9.2 L (9.5-12.2) fL Anion Gap 7.30 L (10.00-18.00) mmol/L Creatinine 0.5 L (0.6-1.5) mg/dL BUN/Creatinine Ratio 25.00 H (12.00-20.00) Ratio Calcium 8.6 L (8.7-10.3) mg/dL HDL Cholesterol 29.10 L (40.00-60.00) mg/dL Assessment and Plan Assessment: Sepsis secondary to right lower lobe pneumonia, recent sinusitis with history of chronic effusion Hypovolemic hyponatremia secondary to the above Hypothyroidism Morbid obesity, BMI 54.3 Obstructive sleep apnea, uses CPAP machine at home History of psoriasis Plan: Continue on current medication regime ,monitoring and symptomatic treatment. Maintain IV antibiotics, increase ambulation. Repeat chest x-ray. Discharge planning in progress for tomorrow. The impression and plan of care has been dictated as directed. : I performed a history and examination of this patient, discussed the same with the dictator. I agree with the dictator's note ,documented as a scribe. Any additional findings or plans will be noted.
--- NOTE | 2021-10-19 12:03 | P.DS ---
Providers Date of admission: 10/17/21 02:54 Expected date of discharge: 10/19/21 Attending physician: Diaz Sierra Primary care physician: Diaz Sierra Hospital Course: Final diagnoses: Sepsis secondary to right lower lobe pneumonia, recent sinusitis with history of chronic effusion Hypovolemic hyponatremia secondary to the above, resolved with gentle IV fluid hydration Hypothyroidism Morbid obesity, BMI 54.3 Obstructive sleep apnea, uses CPAP machine at home History of psoriasis Hospital course:This a 46-year-old female admitted with right lower lobe pneumonia, hyponatremia and multiple other medical issues. Maintained on IV fluid hydration, Rocephin, Zithromax. Feels better this morning, maintaining O2 sats in the mid 90s on room air, no cough. Afebrile. Denies chest pain, palpitations or increasing shortness of breath. Maintained on gentle IV fluid hydration, IV antibiotics of Rocephin and Zithromax with significant clinical improvement. Repeat Chest x-ray reported no evidence of pleural effusion, focal consolidation or pneumothorax, unremarkable pulmonary vascularity, no acute cardiopulmonary disease process process. Afebrile, normal WBC. Sodium is normalized. Renal function stable. Maintaining O2 sats of mid 90s on room air. Denies chest pain, palpitations or increased shortness of breath. Patient will be discharged home today in a stable condition with guarded prognosis. The impression and plan of care has been dictated as directed. : I performed a history and examination of this patient, discussed the same with the dictator. I agree with the dictator's note ,documented as a scribe. Any additional findings or plans will be noted. Patient Condition at Discharge: Stable Plan - Discharge Summary Discharge Rx Participant: No New Discharge Prescriptions: New cefUROXime axetiL [Ceftin] 500 mg PO BID 5 Days #10 tab Docusate [Colace] 100 mg PO HS cap Continue Citalopram Hydrobromide [CeleXA] 40 mg PO DAILY Furosemide [Lasix] 20 mg PO DAILY Potassium Chloride ER [K-Dur 20] 20 meq PO DAILY Multivitamins, Thera [Multivitamin (formulary)] 1 tab PO DAILY amLODIPine BESYLATE/BENAZEPRIL [Lotrel 5-20 mg Capsule] 1 cap PO DAILY Levothyroxine Sodium [Synthroid] 175 mcg PO DAILY Discharge Medication List Citalopram Hydrobromide [CeleXA] 40 mg PO DAILY 03/09/17 [History] Furosemide [Lasix] 20 mg PO DAILY 07/28/18 [History] Levothyroxine Sodium [Synthroid] 175 mcg PO DAILY 10/17/21 [History] Multivitamins, Thera [Multivitamin (formulary)] 1 tab PO DAILY 10/17/21 [History] Potassium Chloride ER [K-Dur 20] 20 meq PO DAILY 10/17/21 [History] amLODIPine BESYLATE/BENAZEPRIL [Lotrel 5-20 mg Capsule] 1 cap PO DAILY 10/17/21 [History] Docusate [Colace] 100 mg PO HS cap 10/19/21 [Rx] cefUROXime axetiL [Ceftin] 500 mg PO BID 5 Days #10 tab 10/19/21 [Rx] Follow up Appointment(s)/Referral(s): Diaz Sierra DO [Primary Care Provider] - 1-2 days
== END 2021-10-19 12:51 | disposition home or self-care (01) ==
LOC: EC 00:20 → 6NMEDSUR 02:54
PROVIDERS: ADMIT Family Medicine; ATTEND Family Medicine
DX: A41.9 Sepsis, unspecified organism (principal); J18.9 Pneumonia, unspecified organism; J90 Pleural effusion, not elsewhere classified; E86.1 Hypovolemia; D72.829 Elevated white blood cell count, unspecified; E87.1 Hypo-osmolality and hyponatremia; E03.9 Hypothyroidism, unspecified; E66.01 Morbid (severe) obesity due to excess calories; Z68.43 Body mass index [BMI] 50.0-59.9, adult; G47.33 Obstructive sleep apnea (adult) (pediatric); L40.9 Psoriasis, unspecified
CPT/HCPCS: 96361 ×3; 96365; 96366 ×2; 96372 ×2; 96376; 99285; 36415; 93005; 80061; 80048 ×2; 83605; 83735; 84484; 85025; 85027; 85610; 85730; 87636; 71046 ×2; G0378 ×3; J0456; J0696 ×4; J1650 ×2

== ENCOUNTER → 2021-10-27 | Outpatient (CLI) | payer BC ==
--- NOTE | 2021-10-27 11:11 | XR ---
EXAMINATION TYPE: XR chest 2V DATE OF EXAM: 10/27/2021 10:00 AM COMPARISON: Chest radiographs from 10/18/2021. TECHNIQUE: XR chest 2V Frontal and lateral views of the chest. CLINICAL INDICATION:Female, 46 years old with history of J12.9 pneumonia; FINDINGS: Lungs/Pleura: There is no evidence of pleural effusion, focal consolidation, or pneumothorax. Pulmonary vascularity: Unremarkable. Heart/mediastinum: Cardiomediastinal silhouette is unremarkable. Musculoskeletal: No acute osseous pathology. IMPRESSION: No acute cardiopulmonary disease/process. No significant change from prior examination.
== END | disposition home or self-care (01) ==
LOC: RADXRMAIN 09:42
PROVIDERS: ATTEND Family Medicine
DX: J18.9 Pneumonia, unspecified organism (principal)
CPT/HCPCS: 71046

== ENCOUNTER → 2023-10-23 | Outpatient (CLI) | payer OTHER | END | disposition home or self-care (01) | LOC: LABPRL 14:55 | PROVIDERS: ATTEND Family Medicine | CPT/HCPCS: 80053; 80061; 83036; 84439; 84443 ==

== ENCOUNTER → 2024-01-30 | Outpatient (CLI) | payer OTHER ==
[2024-01-30 14:33] VITALS: BP 135/86; PULSE 94; RESP 16; TEMP 97.8
--- NOTE | 2024-01-30 15:09 | P.PN ---
Progress Note - Text Progress Note Date: 01/30/24 This is a 48-year-old female patient is coming in for a follow-up regarding obstructive sleep apnea. Her last evaluation with me was approximately 2 years ago. The patient is known to have severe obstructive sleep apnea and the patient carries an AHI of 107. She has been treated with CPAP therapy at a pressure of 14 cm of water and she has been extremely compliant with CPAP therapy over the years. Note that her original diagnosis was back in 2017. She is using the same ResMed 10 CPAP unit over the past 7 years. The machine is functional and the patient is in need for supplies. I checked the compliance data of her machine. The patient utilizing the machine every night. She is sti ll at a pressure of 14 cm of water. Compliancy for more than 4 hours in order of 100%. She has been averaging of 12 hours of CPAP use per night and the leak is noted of 20 L/min and her AHI is down to 0.3. Noted that she has lost around 6 pounds since 2021. She is using the AirFit F20 small size fullface mask. No major hypersomnia or sleepiness as long as the patient utilizes her CPAP unit. No episodes of fall asleep while driving. No morning headaches. No nighttime chest pain or shortness of breath. She continues to benefit from the treatment and the patient is committed to long-term CPAP therapy. For now, she is sleeping more than 10 hours per night. Does not take any naps during the day. No sleep analysis. No hallucinations. No cataplexy Her blood pressure is 135/86 with a pulse of 86 and a respiration of 16 and a temperature of 97.8 and a body mass index is 50.3 with a weight of 259 pounds The patient appeared well nourished and normally developed. Vital signs as do cumented. Head exam is unremarkable. No scleral icterus or corneal arcus noted. Neck is without jugular venous distension, thyromegaly, or carotid bruits. Carotid upstrokes are brisk bilaterally. Lungs are clear to auscultation and percussion. Cardiac exam reveals the PMI to be normally sized and situated. Rhythm is regular. First and second heart sounds normal. No murmurs, rubs or gallops. Abdominal exam reveals normal bowel sounds, no masses, no organomegaly and no aortic enlargement. Extremities are nonedematous and both femoral and pedal pulses are normal. Examination of the skin revealed no evidence of significant rashes, suspicious appearing nevi or other concerning lesions. Neurologically, the patient is awake and alert and the patient does not have any focal neurological deficit. Cranial nerves are essentially intact. Medications include citalopram 40 mg p.o. daily, Norvasc 5 mg p.o. daily, lisinopril 20 mg p.o. daily amlodipine levothyroxine 175 mcg p.o. daily and Lasix 20 mg p.o. daily. Assessment Severe symptomatic obstructive sleep apnea with an AHI of 107 and the patient has been successfully treated with a CPAP pressure of 14 cm of water. Original diagnosis established back in 2017 and the patient continues to use the same ResMed 10 CPAP unit. She is using an AirFit F20 fullface mask Obesity, morbid, with a body mass Mira 50.3 and a weight of 259 pounds Chronic hypersomnia improved with CPAP therapy Hypertension, currently on Norvasc/lisinopril Hypothyroidism, currently on thyroid hormone placement History of psoriasis Plan No need to replace the machine. The machine is functional patient is using the machine every night and the patient is extremely compliant. Obviously, the patient is in need for supplies. I am going to offer her a new chamber, climate line, filters and an AirFit F20 small size fullface mask. Continue efforts to lose weight. Continue antihypertensive medication for a tight blood pressure control. Maintain good sleep hygiene measures. Maintain regular sleep schedule. See him back in a years time in follow-up.
== END ==
LOC: 3 N SLEEP 14:01
PROVIDERS: ATTEND Internal Medicine Critical Care Medicine
DX: G47.33 Obstructive sleep apnea (adult) (pediatric) (principal); E66.01 Morbid (severe) obesity due to excess calories; G47.10 Hypersomnia, unspecified; I10 Essential (primary) hypertension; E03.9 Hypothyroidism, unspecified; Z79.890 Hormone replacement therapy; Z79.899 Other long term (current) drug therapy; Z68.43 Body mass index [BMI] 50.0-59.9, adult; Z87.2 Personal history of diseases of the skin and subcutaneous tissue; Z91.040 Latex allergy status; Z88.1 Allergy status to other antibiotic agents
CPT/HCPCS: 99212

== ENCOUNTER 2024-04-01 07:14 | Day surgery (SDC) | payer OTHER ==
[2024-03-28 09:26] VITALS: BMI 47.8
[~2024-04-01 07:14] MED LIST: LACTATED RINGERS 1,000 ML IV SCH; LIDOCAINE 1% (10MG/ML) FOR IV START INTRADERMA PRN
[2024-04-01 08:07] VITALS: TEMP 97.4
[2024-04-01] MEDS: IV FLUID CONTINUATION 1,000 ML IV ONE (08:22)
[2024-04-01] MEDS: ONDANSETRON 4 MG/2 ML VIAL IVP STA (08:26)
[2024-04-01] MEDS ORDERED: LIDOCAINE 1% INJ 10MG/ML (20 ML MDV) ONE (08:30)
[2024-04-01] MEDS ORDERED: PROPOFOL 10 MG/ML 20 ML VIAL IV ONE (08:30)
[2024-04-01] MEDS: SODIUM CHLORIDE 0.9% 500 ML 500 ML IV ONE (08:30)
--- NOTE | 2024-04-01 08:50 | P.PCN ---
Date of Procedure: 04/01/24 Preoperative Diagnosis: Screening for colon cancer Postoperative Diagnosis: Internal hemorrhoids Procedure(s) Performed: Colonoscopy Anesthesia: MAC Surgeon: Milton Hendrix Pathology: none sent Condition: stable Disposition: same day Indications for Procedure: 49-year-old female presents today for screening colonoscopy. She has had a colonoscopy in the past with no previous issues. Denies any blood in her stool. Denies any family history of colon cancer. Operative Findings: Overall normal-appearing colon with internal hemorrhoids Description of Procedure: The patient was brought to the endoscopy suite and placed in left lateral decubitus position and adequate sedation was achieved using conscious sedation. Digital rectal exam was performed and mild internal hemorrhoids were palpated. An endoscope was then placed in the rectum and advanced to the cecum as identified by landmarks including the appendiceal orifice and the ileocecal valve. The prep was good. The colonoscope was then slowly withdrawn, examining for any mucosal abnormalities. The cecum, ascending, transverse, descending and sigmoid colon were visualized adequately. There were no large neoplastic lesions noted throughout the colon. There were no obvious polyps noted throughout the colon. No significant neoplastic lesions were noted. Hemostasis was maintained. Retroflexion was performed in the rectum and internal hemorrhoids. Excess air was removed, the colonoscope withdrawn and the procedure terminated. The patient was then transferred to the recovery unit in stable condition. Repeat colonoscopy should be performed in 8 years.
[2024-04-01 09:20] VITALS: BP 157/94; PULSE 66; RESP 18
== END 2024-04-01 09:42 | disposition home or self-care (01) ==
LOC: ORWHC2ENDO 07:14
PROVIDERS: ATTEND Surgery
DX: Z12.11 Encounter for screening for malignant neoplasm of colon (principal); K64.8 Other hemorrhoids; I10 Essential (primary) hypertension; G47.33 Obstructive sleep apnea (adult) (pediatric); E07.9 Disorder of thyroid, unspecified; F32.A Depression, unspecified; F41.9 Anxiety disorder, unspecified; I89.0 Lymphedema, not elsewhere classified; Z79.890 Hormone replacement therapy; Z79.899 Other long term (current) drug therapy
CPT/HCPCS: 81025; 45378; J2405; J2003; J2704

== ENCOUNTER 2024-07-16 21:24 | Emergency (ER) | payer OTHER ==
[2024-07-16 21:38] VITALS: RESP 18; TEMP 98.2
--- NOTE | 2024-07-16 22:01 | ED ---
Wound/Laceration HPI - General Chief Complaint: Wound/Laceration Stated Complaint: Foot laceration Time Seen by Provider: 07/16/24 21:41 Source: patient Mode of arrival: EMS Limitations: no limitations - History of Present Illness Initial Comments: 49-year-old female presenting with chief complaint of laceration to the right foot. Patient was walking down the stairs and had her laundry on the stairs. She states that she stepped on a bra and the plastic part cut a small piece of the skin on her heel off. She states that it was bleeding profusely at home, the bleeding has since stopped. She is unsure when her last tetanus shot was. The area is about 1/2 of a dime size. - Related Data Home Medications Medication Instructions Recorded Confirmed Citalopram Hydrobromide [CeleXA] 40 mg PO DAILY 03/09/17 04/01/24 Furosemide [Lasix] 20 mg PO DAILY 07/28/18 04/01/24 Levothyroxine Sodium [Synthroid] 175 mcg PO DAILY 10/17/21 04/01/24 Potassium Chloride ER [K-Dur 20] 20 meq PO DAILY 10/17/21 04/01/24 amLODIPine BESYLATE/BENAZEPRIL 1 cap PO DAILY 10/17/21 04/01/24 [Lotrel 5-20 mg Capsule] Previous Rx's Medication Instructions Recorded Cephalexin [Keflex] 500 mg PO Q8HR 5 Days #15 cap 07/16/24 Allergies Allergy/AdvReac Type Severity Reaction Status Date / Time Latex, Natural Rubber Allergy Itching Verified 07/16/24 21:38 vancomycin Allergy Itching Verified 07/16/24 21:38 adhesive tape AdvReac Mild Itching Verified 07/16/24 21:38 Review of Systems ROS Statement: Those systems with pertinent positive or pertinent negative responses have been documented in the HPI. ROS Other: All systems not noted in ROS Statement are negative. Past Medical History Past Medical History: Hypertension, Skin Disorder, Sleep Apnea/CPAP/BIPAP, Thyroid Disorder Additional Past Medical History / Comment(s): lymphedema,cellulitis, psoriasis, psoratic arthritis, cpap History of Any Multi-Drug Resistant Organisms: None Reported Past Surgical History: Ear Surgery, Tonsillectomy, Uterine Ablation Additional Past Surgical History / Comment(s): 20 surgeries to ears , colonoscopy Past Anesthesia/Blood Transfusion Reactions: No Reported Reaction, Postoperative Nausea & Vomiting (PONV) Past Psychological History: Anxiety, Depression Smoking Status: Never smoker - Past Family History Mother Family Medical History: Diabetes Mellitus, Deep Vein Thrombosis (DVT), Pulmonary Embolus, Sleep Apnea/CPAP/BIPAP, Thyroid Disorder Additional Family Medical History / Comment(s): "heart issues", smoker General Exam Limitations: no limitations General appearance: alert, in no apparent distress Head exam: Present: atraumatic, normocephalic, normal inspection Eye exam: Present: normal appearance, EOMI Neck exam: Present: normal inspection. Absent: meningismus Respiratory exam: Absent: respiratory distress Cardiovascular Exam: Present: regular rate Neurological exam: Present: alert, oriented X3 Psychiatric exam: Present: normal affect, normal mood Expanded Type of lesion: Present: laceration (Skin avulsion to the right heel) Course Vital Signs 07/16/24 21:35 Temperature 98.2 F Pulse Rate 87 Respiratory 18 Rate Blood Pressure 115/61 O2 Sat by Pulse 98 Oximetry Medical Decision Making - Medical Decision Making Was pt. sent in by a medical professional or institution (, PA, LOG INSPECTOR, urgent care, hospital, or usp...) When possible be specific @ -No Did you speak to anyone other than the patient for history (EMS, parent, family, police, friend...)? What history was obtained from this source @ -No Did you review nursing and triage notes (agree or disagree)? Why? @ -I reviewed and agree with nursing and triage notes Were old charts reviewed (outside hosp., previous admission, EMS record, old EKG, old radiological studies, urgent care reports/EKG's, usp records)? Report findings @ -No old charts were reviewed Differential Diagnosis (chest pain, altered mental status, abdominal pain women, abdominal pain men, vaginal bleeding, weakness, fever, dyspnea, syncope, headache, dizziness, GI bleed, back pain, seizure, CVA, palpatations, mental health, musculoskeletal)? @ -Differential includes laceration, skin avulsion, foreign body, not an all- inclusive list EKG interpreted by me (3pts min.). @ -As above X-rays interpreted by me (1pt min.). @ -None done CT interpreted by me (1pt min.). @ -None done U/S interpreted by me (1pt. min.). @ -None done What testing was considered but not performed or refused? (CT, X-rays, U/S, labs)? Why? @ -None What meds were considered but not given or refused? Why? @ -None Did you discuss the management of the patient with other professionals (professionals i.e. , PA, LOG INSPECTOR, lab, RT, psych nurse, social services technician, data entry processor, teacher, armoured corps officer, piano case maker)? Give summary @ -No Was smoking cessation discussed for >3mins.? @ -No Was critical care preformed (if so, how long)? @ -No Were there social determinants of health that impacted care today? How? (Homelessness, low income, unemployed, alcoholism, drug addiction, transportation, low edu. Level, literacy, decrease access to med. care, correction, rehab)? @ -No Was there de-escalation of care discussed even if they declined (Discuss DNR or withdrawal of care, Hospice)? DNR status @ -No What co-morbidities impacted this encounter? (DM, HTN, Smoking, COPD, CAD, Cancer, CVA, ARF, Chemo, Hep., AIDS, mental health diagnosis, sleep apnea, morbid obesity)? @ -None Was patient admitted / discharged? Hospital course, mention meds given and route, prescriptions, significant lab abnormalities, going to OR and other pertinent info. @ -49-year-old female presenting with chief complaint of laceration. Patient has a skin avulsion to the right heel after stepping on the plastic piece to a bra she had on the floor. Bleeding is under control at this time. Gelfoam was applied over the area and the wound is dressed. Patient's tetanus is updated. She will be started on a short course of antibiotics. Educated on wound care and signs of infection. Follow-up with PCP. Report back to ER with any new or worsening symptoms. Discussed return parameters and answered all questions. Patient conveyed verbal understanding and agreed to the plan. I discussed this case in detail with my attending Dr. Worthy Undiagnosed new problem with uncertain prognosis? @ -No Drug Therapy requiring intensive monitoring for toxicity (Heparin, Nitro, Insulin, Cardizem)? @ -No Were any procedures done? @ -No Diagnosis/symptom? @ -Skin avulsion Acute, or Chronic, or Acute on Chronic? @ -Acute Uncomplicated (without systemic symptoms) or Complicated (systemic symptoms)? @ -Uncomplicated Side effects of treatment? @ -No Exacerbation, Progression, or Severe Exacerbation? @ -No Poses a threat to life or bodily function? How? (Chest pain, [place], [place], pneumonia, PE, COPD, DKA, ARF, appy, cholecystitis, CVA, Diverticulitis, Homicidal, Suic idal, threat to staff... and all critical care pts) @ -Unlikely Disposition Clinical Impression: Skin avulsion Disposition: HOME SELF-CARE Condition: Good Instructions (If sedation given, give patient instructions): Skin Avulsion (ED) Additional Instructions: Follow-up with PCP. Report back to ER with any new or worsening symptoms. Leave the Gelfoam on for 2 days, it will either fall off on its own or you can soak it off. You can use topical antibiotic ointment on the area afterwards. Wash area with soap and water. Keep it clean dry and covered. Prescriptions: Cephalexin [Keflex] 500 mg PO Q8HR 5 Days #15 cap Is patient prescribed a controlled substance at d/c from ED?: No Referrals: Diaz Sierra DO [Primary Care Provider] - 1-2 days Time of Disposition: 22:01
[2024-07-16] MEDS: DIPH,PERTUS(ACELL)TETVAC-LF 0.5 ML VIAL IM ONE (22:07)
[2024-07-16 22:17] VITALS: BP 122/65; PULSE 82
== END 2024-07-16 22:17 | disposition home or self-care (01) ==
LOC: EC 21:24
DX: S91.311A Laceration without foreign body, right foot, initial encounter (principal); Z91.040 Latex allergy status; Z88.1 Allergy status to other antibiotic agents; Z91.09 Other allergy status, other than to drugs and biological substances; Z23 Encounter for immunization; W26.8XXA Contact with other sharp object(s), not elsewhere classified, initial encounter; Y92.009 Unspecified place in unspecified non-institutional (private) residence as the place of occurrence of the external cause; Y93.01 Activity, walking, marching and hiking
CPT/HCPCS: 90471; 90715; 99283